=== PATIENT | female | born 1965 | race Caucasian/White ===

== ENCOUNTER 2017-06-27 10:05 | Inpatient (IN) | payer BC ==
[2017-06-27] MEDS ORDERED: Ondansetron HCl/PF 4 MG/2 ML Vial ONE ×2 (10:40→12:08)
[2017-06-27 10:54] LABS: #Eosinphils 0.1 thou/uL (0.0-0.7); #Lymphocytes 2.1 thou/uL (1.20-3.40); #Monocytes 1.9 thou/uL (0.11-0.59); #Neutrophils 13.5 thou/uL (1.40-6.50); %Basophils 0.3 % (0.0-1.0); %Eosinophils 0.7 % (0.0-10.0); %Lymphocytes 11.7 % (21.0-51.0); %Monocytes 10.8 % (0.0-10.0); %Neutrophils 76.5 % (42.0-75.0); Hemoglobin 18.3 g/dL (12.0-16.0); Mean Corpuscular HGB CONC 33.6 g/dL (32.0-36.0); Mean Corpuscular Hemoglobin 30.7 pg (27.0-31.0); Mean Corpuscular Volume 91.4 fl (81.0-99.0); Mean Platelet Volume 7.7 fL (7.4-10.4); Platelet Count 311 thou/uL (130-400); RBC Distribution Width 11.9 % (11.5-14.5); Red Blood Cell (RBC) Count 5.96 mill/uL (4.20-5.40); White Blood Cell (WBC) Count 17.6 thou/uL (4.8-10.8)
[2017-06-27 11:18] LABS: CKMB 5.7 ng/mL (0-6.6)
[2017-06-27 11:25] LABS: Troponin I 0.105 ng/mL (< 0.028)
[2017-06-27 11:30] LABS: AST (SGOT) 48 U/L (5-34); Albumin 4.2 g/dL (3.5-5.0); Bilirubin, Total 0.5 mg/dL (0.2-1.2); Calc. Creatinine Clearance 0 mL/min (70-130); Calcium 9.7 mg/dL (7.8-10.44); Carbon Dioxide 10 mmol/L (22-29); Chloride 103 mmol/L (98-107); Estimated GFR-MDRD 29; Globulin 4.2 g/dL (2.4-3.5); Potassium 3.4 mmol/L (3.5-5.1); Protein, Total 8.4 g/dL (6.0-8.3); Sodium 133 mmol/L (136-145)
[2017-06-27 11:45] LABS: Glucose 114 mg/dL (70-105)
[2017-06-27 11:47] LABS: Alkaline Phosphatase 95 U/L (40-150)
[2017-06-27] MEDS ORDERED: Potassium Chloride 20 MEQ TAB ONE (11:48)
[2017-06-27 11:49] LABS: BUN (Urea Nitrogen) 28 mg/dL (9.8-20.1)
[2017-06-27 11:51] LABS: ALT (SGPT) 43 U/L (8-55); CK (CPK) 226 U/L (29-168)
[2017-06-27 11:53] LABS: Anion Gap 23 mmol/L (10-20)
--- NOTE | 2017-06-27 12:00 | RAD ---
CHEST 1 VIEW: HISTORY: A 52-year-old female with a history of syncopal episode with chest pain and tingling, vomiting, and d iarrhea. COMPARISON: 12/30/16. FINDINGS: Heart size is normal. The lungs are clear. IMPRESSION: No acute intrathoracic disease. POS: [facility]
[2017-06-27] MEDS ORDERED: Guaifenesin DM 100-10/5 ML UDCUP PO PRN (12:17)
[2017-06-27] MEDS ORDERED: Enoxaparin Sodium 40 MG/0.4 ML SYRINGE SC SCH (12:30)
[2017-06-27] MEDS ORDERED: PROVENTIL INHALER 6.7 G (200 INHALATIONS) INH PRN (12:38)
[2017-06-27] MEDS ORDERED: Phenergan/Codeine 10-6.25mg/5ml UDCUP PO PRN (12:38)
[2017-06-27] MEDS ORDERED: hydrALAZINE 20 MG/ML VIAL SLOW IVP PRN (12:43)
[2017-06-27] MEDS ORDERED: methylPREDNISolone 4 mg Tablet PO SCH (12:45)
--- NOTE | 2017-06-27 13:30 | HP ---
CHIEF COMPLAINT: Syncopal episode and chest pain "fell at home." HISTORY OF PRESENT ILLNESS: A 52-year-old female with a known history of hypertension, scleroderma, scleroderma associated renal disease, who presented with a chief complaint of having fallen at home and a syncopal episode while having some chest discomfort. It appears that since last Thursday, which is approximately 5 days ago. The patient has been having symptoms of cough, nausea , retching, intermittent diarrhea, malaise, fatigue, sweats, diaphoresis that have been progressively worse since then. It appears that her family at home has had similar but milder symptoms. Theirs have resolved, but hers have persisted. Over the last few days, the patient has been unable to tolerate much oral intake as every time she tries to eat something, she becomes nauseated. REVIEW OF SYSTEMS: As per HPI. CONSTITUTIONAL: Subjective fevers and chills. No significant weight loss or gain. HEENT: No new headaches, dizziness, or vision changes. CARDIOVASCULAR: No overt chest pain, chest pressure, left-sided arm numbness or tingling, although the patient does endorse having "night sweats or diaphoretic episodes." RESPIRATORY: No overt shortness of breath. Positive for cough grossly nonproductive. GASTROINTESTINAL: Nausea with retching, poor p.o. intake as attempts p.o. intake resulted in nausea after p.o. attempt. Intermittent diarrhea. GENITOURINARY: No dysuria. No changes in urinary frequency, color, or quantity. MUSCULOSKELETAL: Generalized fatigue, malaise, myalgias, without arthralgias. SKIN: No new rashes or lymphadenopathy. Remainder of review of systems otherwise negative. PAST MEDICAL HISTORY: As per above. Includes, 1. Hypertension, scleroderma, Raynaud's disease, history of kidney injury due to scleroderma per the patient. 2. Status post cholecystectomy. 3. Status post hysterectomy. 4. Status post tonsillectomy. HOME MEDICATIONS: As per EMR. The patient denies any recent changes to this regimen in the last 2 weeks. ALLERGIES: No known drug allergies. FAMILY HISTORY: No known family history of scleroderma or renal disease. PHYSICAL EXAMINATION: VITAL SIGNS: Blood pressure 160/101, pulse of 110, respirations 18, satting 100 % on room air, temperature of 99.4. GENERAL: The patient is awake, alert, appropriate, conversant, and provides a history as above. Appears to be a reasonable historian. HEENT: Dry mucous membranes. HEENT: Equal ocular motions are intact. Pupils are equal and reactive. Reasonable dentition. Normocephalic, atraumatic. CARDIOVASCULAR: S1 and S2. Pulses 2+ bilateral upper extremities, no pitting pedal edema. RESPIRATORY: Clear to auscultation throughout. No wheezes, rales or rhonchi. ABDOMEN: Positive bowel sounds, soft, nontender to palpation. MUSCULOSKELETAL: Moving all 4 extremities. LABORATORY DATA AND IMAGING: WBC 17.6, hemoglobin 18.3, hematocrit 58.5, platelets 311. Sodium 133, potassium 3.4, chloride 103, bicarb 10, creatinine 1.81, BUN 28. Lactic acid 6.2, AST 48, ALT 43, alkaline phosphatase 95. Creatinine kinase 226, troponin 0.105. Influenza swab positive for influenza type B. ASSESSMENT AND PLAN: A 52-year-old female, who presents status post a syncopal episode. 1. Influenza type B. The patient likely has been experiencing symptoms consistent with type B influenza. Given the severity of her symptoms including the comorbid sepsis presentation, the patient will be started empirically on Tamiflu. The patient appears to have a significant amount of dehydration alongside leukocytosis, acute kidney injury and non-ST elevated myocardial infarction type 2 presentation. The patient will be initiated on Tamiflu, IV fluid, supportive care otherwise with close monitoring of her hemodynamics. 2. History of hypertension. Continue the patient on her home regimen as her vital signs will tolerate. P.r.n., hydralazine if needed for interval blood pressure control. 3. Elevated troponin, closely monitor. I suspect that this is a type 2 etiology given her influenza. The patient states that she does see an outpatient microarray operations vice president, we will consult. 4. Elevated creatinine in the setting of scleroderma could be prerenal etiology , we will hydrate. Continue close monitoring of intake and output. Repeat BMP in the morning. Suspect prerenal secondary to sepsis from influenza. 5. Dehydration. Please see discussion above. Admit the patient inpatient medical surgical with telemetry. The patient is FULL CODE. This is discussed with the patient and her family at bedside. Greater than 30 minutes critical care time spent coordinating care for admission for this patient. ANA
[2017-06-27 14:42] LABS: Troponin I 0.133 ng/mL (< 0.028)
[2017-06-27] MEDS: methylPREDNISolone 4 mg Tablet PO SCH ×2 (17:35→20:58)
[2017-06-27] MEDS: Sodium Chloride 0.9% 1,000 ML IV SCH ×2 (17:35→20:56)
[2017-06-27 18:25] LABS: Lactic Acid 3.1 mmol/L (0.5-2.2)
--- NOTE | 2017-06-27 18:55 | CON ---
DATE OF CONSULTATION: 06/27/2017 REASON FOR CONSULTATION: Elevated troponin. REFERRING PROVIDER: Ezra Pinedo M.D. HISTORY OF PRESENT ILLNESS: Ms. Bledsoe is a 52-year-old woman with previous history of scleroderma who recently has been seen and evaluated by Dr. Joaquim Sutherland. She recently had a syncopal episode. Her significant other states she had a seizure-like activity. She has been sick and not eating well. S he has been dehydrated. She has had very poor p.o. intake. She has also had coughing in addition to chest pain, it is worse with coughing. PAST MEDICAL HISTORY: Hypertension and Raynaud. PAST SURGICAL HISTORY: Cholecystectomy, hysterectomy, tonsillectomy. ALLERGIES: None. FAMILY HISTORY: Negative for CAD. HOME MEDICATIONS: Methylprednisone, psyllium, promethazine, nifedipine, metoprolol, meloxicam, lisin opril, levofloxacin, and aspirin. REVIEW OF SYSTEMS: Ten-point review of systems is reviewed and as above, otherwise negative. PHYSICAL EXAMINATION: GENERAL: Patient is a pleasant female who is in no acute distress. The patient appears her stated a ge. VITAL SIGNS: Blood pressure 129/86, pulse 86, temperature 99.5. NEUROLOGIC: The patient is alert and oriented times 3 with no focal neurologic deficits. HEENT: Sclerae without icterus. Mouth has moist mucous membranes with normal pallor. NECK: No JVD. Carotid upstroke brisk. No bruits bilaterally. LUNGS: Clear to auscultation with unlabored respirations. BACK: No scoliosis or kyphosis. CARDIAC: Regular rate and rhythm with normal S1 and S2. No S3 or S4 noted. No significant rubs, mu rmurs, thrills, or gallops noted throughout the precordium. PMI is not displaced. There is no kelly ternal heave. ABDOMEN: Soft, nontender, nondistended. No peritoneal signs present. No hepatosplenomegaly. No ab normal striae. EXTREMITIES: 2+ femoral and 2+ dorsalis pedis pulses. No cyanosis, clubbing, or edema. SKIN: No gross abnormalities. LABORATORY DATA: Lactic acid level of 6.2, creatinine 1.81, BUN 28, sodium 134, troponin 0.133, GFR 29, hemoglobin 18.3. IMPRESSION: 1. Syncope. 2. Positive flu. 3. Scleroderma. RECOMMENDATIONS: Ms. Bledsoe states she recently had a stress study performed in the office and was negative for ischemia. Her syncope is likely related to dehydration, recent flu-like illness. We alfredo gruber recommend IV fluids and continue support. Continue monitoring on telemetry monitoring. We will review her echo noted in the office. We will continue follow with you.
[2017-06-27] MEDS: Lisinopril 5 MG TAB PO SCH (20:56)
[2017-06-27] MEDS: Famotidine/PF 20 mg/2ml Vial SLOW IVP SCH (20:56)
[2017-06-27] MEDS: Metoprolol Tartrate 25 MG TAB PO SCH (20:57)
[2017-06-27] MEDS: Acetaminophen 325 MG TAB PO PRN (20:57)
[2017-06-27] MEDS: Oseltamivir 75 MG CAP PO SCH (20:57)
[2017-06-28] MEDS: Sodium Chloride 0.9% 1,000 ML IV SCH ×4 (00:57→23:45)
[2017-06-28 01:24] LABS: Bilirubin Negative (Negative); Blood, Urine Moderate (Negative); Clarity CLEAR (Clear); Glucose, Urine (Dipstick) Negative (Negative); Leukocyte Negative (Negative); Nitrite Negative (Negative); Protein, Urine (Dipstick) 100 mg/dL (Neg-Trace); Specific Gravity, Urine 1.023 (1.002-1.036); Urobilinogen 0.2 mg/dL (0.2-1.0)
[2017-06-28 01:26] LABS: Bacteria/HPF None Seen HPF (None Seen); Hyaline Casts/LPF 0-3 HYALINE CAST LPF (0-3 Hyaline); Pathc Cast-AUWi Flag 0.13 (0-2.49); Squamous Epithelial 0-3 HPF (0-3); WBC/HPF 0-3 HPF (0-3)
[2017-06-28 06:33] LABS: #Lymphocytes 2.1 thou/uL (1.20-3.40); #Monocytes 1.1 thou/uL (0.11-0.59); %Eosinophils 0.2 % (0.0-10.0); %Lymphocytes 22.8 % (21.0-51.0); %Monocytes 11.9 % (0.0-10.0); Hemoglobin 15.5 g/dL (12.0-16.0); Mean Corpuscular HGB CONC 33.3 g/dL (32.0-36.0); Mean Corpuscular Hemoglobin 30.7 pg (27.0-31.0); Mean Corpuscular Volume 92.1 fl (81.0-99.0); Mean Platelet Volume 8.2 fL (7.4-10.4); Platelet Count 247 thou/uL (130-400); RBC Distribution Width 11.9 % (11.5-14.5); Red Blood Cell (RBC) Count 5.05 mill/uL (4.20-5.40); White Blood Cell (WBC) Count 9.2 thou/uL (4.8-10.8)
[2017-06-28 06:49] LABS: Albumin 3.4 g/dL (3.5-5.0); Anion Gap 11 mmol/L (10-20); BUN (Urea Nitrogen) 22 mg/dL (9.8-20.1); BUN/Creatinine Ratio 16.67; Calc. Creatinine Clearance 74 mL/min (70-130); Calcium 8.4 mg/dL (7.8-10.44); Carbon Dioxide 18 mmol/L (22-29); Chloride 110 mmol/L (98-107); Estimated GFR-MDRD 42; Glucose 104 mg/dL (70-105); Phosphorus 2.6 mg/dL (2.3-4.7); Potassium 4.5 mmol/L (3.5-5.1); Sodium 134 mmol/L (136-145)
[2017-06-28] MEDS: Oseltamivir 75 MG CAP PO SCH ×2 (08:23→20:43)
[2017-06-28] MEDS: Aspirin 81 mg Enteric Coated Tablet PO SCH (08:23)
[2017-06-28] MEDS: Metoprolol Tartrate 25 MG TAB PO SCH ×2 (08:23→20:43)
[2017-06-28] MEDS: Lisinopril 5 MG TAB PO SCH ×2 (08:23→20:43)
[2017-06-28] MEDS: methylPREDNISolone 4 mg Tablet PO SCH ×3 (08:24→18:06)
[2017-06-28] MEDS ORDERED: NIFEdipine XL 60 MG TAB PO SCH (09:00)
[2017-06-28] MEDS ORDERED: FLU VACC QS2017-18 36 mo. & older 0.5 ML SYRINGE IM ONE (09:00)
[2017-06-28] MEDS ORDERED: Meloxicam 15 MG TAB PO SCH (09:00)
[2017-06-28] MEDS: Acetaminophen 325 MG TAB PO PRN ×2 (11:44→18:06)
--- NOTE | 2017-06-28 12:53 | CON ---
DATE OF CONSULTATION: 06/28/2017 REASON FOR CONSULTATION: Elevated creatinine. HISTORY OF PRESENT ILLNESS: This is a very pleasant 52-year-old female who presented to the hospital on 06/27 with a creatinine of 1.8. Baseline creatinine was less than 1 and the patient had a syncop al episode. The patient has had diarrhea and vomiting. The patient at this time denies headache, nu mbness, tingling or weakness. Denies any nausea, vomiting or chest pain. REVIEW OF SYSTEMS: Fifteen-point review of systems was performed and was negative except for positiv es noted above. GENERAL: Weakness-. HEAD: Headache-. NECK: No swelling or lumps. NOSE: No epistaxis or discharge. EYES: No diplopia or pain. RESPIRATORY: Dyspnea-. CARDIOVASCULAR: Chest pain-. GASTROINTESTINAL: Nausea-. /CHURCH SECRETARY: Hematuria-. MUSCULOSKELETAL: No joint pain. NEUROPSYCHIATRIC SYSTEMS: No suicidal ideation. No ideation. SKIN: Denies any rash or ulcer. CONSTITUTIONAL: No fever or chills. PAST MEDICAL HISTORY: Significant for hypertension, scleroderma, renal disease, cholecystectomy, hys terectomy and tonsillectomy. HOME MEDICATIONS: List reviewed. HOSPITAL MEDICATIONS: Reviewed. ALLERGIES: Reviewed. FAMILY HISTORY: Negative for ESRD. PHYSICAL EXAMINATION: GENERAL: The patient is awake and alert. VITAL SIGNS: Afebrile, pulse 75, breathing at 16 and blood pressure was 132/81. HEAD/NECK: Normocephalic. Atraumatic. EYES: EOMI. No deformity. EARS: Clear. No ulcers. NOSE: Intact. No lesions. MOUTH: Clear. No discharge. THROAT: Clear. No exudate. LUNGS: Clear. No crackles. CARDIAC: S1, S2. No rub. ABDOMEN: Benign. BS+. GENITALIA/RECTUM: Britt absent. BACK/EXTREMITIES: Edema 0+. Ulcer-. NEUROLOGICAL: Alert and motor intact. SKIN: Rash-. Bruise-. LYMPHATICS: Edema-. Ulcer-. LABORATORY DATA: Showed a hemoglobin of 15.5. Creatinine 1.2. ASSESSMENT AND RECOMMENDATIONS: 1. Acute kidney injury, stable. 2. Hypertension, stable. 3. Anemia, stable. 4. Metabolic acidosis. We will give sodium bicarbonate. No indication for dialysis at this time. Continue gentle hydration.
--- NOTE | 2017-06-28 13:36 | PRG ---
DATE OF SERVICE: 06/28/2017 SUBJECTIVE: Ms. Bledsoe is doing much better today. No recurrent episodes of syncope. She has rece ived IV fluids. Echo is currently pending. PHYSICAL EXAMINATION: VITAL SIGNS: Blood pressure 153/99, pulse 71, temperature 97.4. LUNGS: Clear to auscultation. CARDIAC: Regular rate and rhythm. ABDOMEN: Soft, nontender, nondistended. EXTREMITIES: No edema. IMPRESSION: 1. Syncope. 2. Scleroderma. RECOMMENDATIONS: Ms. Bledsoe's symptoms are likely related to volume contraction. She tested positi ve for the flu. We would continue IV fluids. We will check echocardiogram with Doppler. We will re evaluate in a.m.
--- NOTE | 2017-06-28 15:00 | PDOC.PN ---
- Subjective Encounter Start Date: 06/28/17 Encounter Start Time: 15:00 Subjective: nsg notes rev, nisa ovn, @ bedside pt states she feels much better -: breathing is improved, able to tolerate some oral intake, no further -: diarrhea - Objective Resuscitation Status: Resuscitation Status FULL:Full Resuscitation Vital Signs & Weight: Vital Signs (12 hours) Temp Pulse Resp BP BP BP BP 06/28/17 12:00 97.4 F L 81 18 153/99 H 06/28/17 08:16 99.3 F 89 16 142/87 H 140/80 146/81 H 132/81 06/28/17 08:15 99.3 F 89 16 06/28/17 04:55 06/28/17 04:00 98 F 70 19 124/67 Pulse Ox 06/28/17 12:00 96 06/28/17 08:16 100 06/28/17 08:15 100 06/28/17 04:55 100 06/28/17 04:00 100 Weight Weight 208 lb 4.8 oz I&O: 06/27/17 06/28/17 06/29/17 06:59 06:59 06:59 Intake Total 1828 Output Total 750 Balance 1078 Result Diagrams: 06/28/17 05:44 06/28/17 05:44 Phys Exam - Physical Examination Constitutional: NAD HEENT: PERRLA, moist MMs Respiratory: no wheezing, no rales, no rhonchi, clear to auscultation bilateral Cardiovascular: RRR, no significant murmur, no rub Gastrointestinal: soft, no distention, positive bowel sounds Musculoskeletal: no edema, pulses present Neurological: moves all 4 limbs Psychiatric: normal affect, A&O x 3 Skin: normal turgor, cap refill <2 seconds Dx/Plan (1) Influenza Code(s): J11.1 - FLU DUE TO UNIDENTIFIED INFLUENZA VIRUS W OTH RESP MANIFEST Status: Acute (2) MARCO ANTONIO (acute kidney injury) Code(s): N17.9 - ACUTE KIDNEY FAILURE, UNSPECIFIED Status: Acute (3) Hypertensive urgency Code(s): I16.0 - HYPERTENSIVE URGENCY Status: Acute - Plan cont current plan of care, plan discussed w/ family Influenza type B. * symptomatically improved, in room air, no conversational dyspnea * continue tamiflu * leukocytosis improved dehydration * D/C IVF as oral intake is significantly improved HTN * improved, continue to monitor elevated troponin likely IA type 2 * appreciate cardiology c/s * hemodynamically stable MARCO ANTONIO, likely pre renal * appreciate nephrology c/s diet: cardiac, renal activity: as ryan If continued improvement, potential D/C tomorrow Review of Systems - Medications/Allergies Allergies/Adverse Reactions: Allergies Allergy/AdvReac Type Severity Reaction Status Date / Time No Known Allergies Allergy Verified 12/30/16 16:52 Medications: Current Medications Acetaminophen (Tylenol) 650 mg PO Q4H PRN PRN Reason: Headache/Fever or Pain Last Admin: 06/28/17 11:44 Dose: 650 mg Albuterol Sulfate (Proventil Hfa) 1 puff INH Q4HR PRN PRN Reason: SOB &/or Wheezing Albuterol/Ipratropium (Duoneb) 3 ml NEB [id number] PRN PRN Reason: SOB &/or Wheezing Aspirin (Ecotrin) 81 mg PO DAILY [facility] Last Admin: 06/28/17 08:23 Dose: 81 mg Famotidine (Pepcid) 20 mg SLOW IVP QPM [facility] Last Admin: 06/27/17 20:56 Dose: 20 mg Guaifenesin/Dextromethorphan (Robitussin Dm) 15 ml PO Q4H PRN PRN Reason: Cough Hydralazine HCl (Apresoline) 10 mg SLOW IVP Q4H PRN PRN Reason: Hypertension Sodium Chloride (Normal Saline 0.9%) 1,000 mls @ 150 mls/hr IV .Q6H40M [facility] Last Admin: 06/28/17 08:24 Dose: 1,000 mls Lisinopril (Zestril) 5 mg PO BID [facility] Last Admin: 06/28/17 08:23 Dose: 5 mg Meloxicam (Mobic) 15 mg PO DAILY [facility] Last Admin: 06/28/17 08:23 Dose: 15 mg Methylprednisolone (Medrol) 4 mg PO 0800,1300,1800 [facility] Stop: 06/28/17 18:01 Last Admin: 06/28/17 13:11 Dose: 4 mg Methylprednisolone (Medrol) 8 mg PO 2100 [facility] Stop: 06/28/17 21:01 Methylprednisolone (Medrol) 4 mg PO 0800,1200,1700,2100 [facility] Stop: 06/29/17 21:01 Methylprednisolone (Medrol) 4 mg PO 0800,1200,1700 [facility] Stop: 06/30/17 17:01 Methylprednisolone (Medrol) 4 mg PO 0800,1700 [facility] Stop: 07/01/17 17:01 Methylprednisolone (Medrol) 4 mg PO 0800 [facility] Stop: 07/02/17 08:01 Metoprolol Tartrate (Lopressor) 25 mg PO BID [facility] Last Admin: 06/28/17 08:23 Dose: 25 mg Nifedipine (Procardia Xl) 60 mg PO DAILY [facility] Last Admin: 06/28/17 08:22 Dose: 60 mg Ondansetron HCl (Zofran) 4 mg IVP Q6H PRN PRN Reason: Nausea/Vomiting Oseltamivir Phosphate (Tamiflu) 75 mg PO BID [facility] Stop: 07/02/17 09:01 Last Admin: 06/28/17 08:23 Dose: 75 mg Promethazine HCl/Codeine (Phenergan/Codeine Syrup) 5 ml PO Q6HR PRN PRN Reason: Cough
[2017-06-28] MEDS: Famotidine/PF 20 mg/2ml Vial SLOW IVP SCH (20:43)
[2017-06-28] MEDS ORDERED: methylPREDNISolone 4 mg Tablet PO SCH (21:00)
[2017-06-28] MEDS ORDERED: DOPamine 400 MG/D5W 250 ML 250 ML ONE (22:37)
[2017-06-28] MEDS ORDERED: DOPamine 400 MG/D5W 250 ML 250 ML IVPB SCH ×2 (23:00)
[2017-06-28] MEDS ORDERED: Hydrocortisone Sod Succ/PF 100 mg/2 ml Vial IVP SCH (23:00)
[2017-06-28] MEDS: Ondansetron HCl/PF 4 MG/2 ML Vial IVP PRN (23:45)
--- NOTE | 2017-06-29 00:09 | PDOC.EVN ---
Event Note - Event Note Event Note: Code briana called for syncopal episode with being bradycardic (40's) and hypotensive sbp around 70's initially. Is cold and sweaty with acral cyanosis. Very lethargic but responds to verbal stimuli. 1 dose hydrocortisone 100mg, normal saline bolus 1 liter. Tx to ccu, dopamine 5mcg, is moving all extremities. 20minutes into code briana, pt's acral cynosis is resolving, sbp is coming upto 110. Will get central line in case she does this again overnight for pressors if needed. Is moved to A, Ct/MRI brain in am when stable May tx out to tele in am if she remains stable hemodynamically.
[2017-06-29] MEDS ORDERED: Promethazine HCl 25 MG/ML VIAL SLOW IVP PRN (01:21)
[2017-06-29] MEDS: Sodium Chloride 0.9% 1,000 ML IV SCH ×3 (05:13→17:25)
[2017-06-29] MEDS ORDERED: methylPREDNISolone 4 mg Tablet PO SCH (08:00)
[2017-06-29] MEDS: Aspirin 81 mg Enteric Coated Tablet PO SCH (08:47)
[2017-06-29] MEDS: Oseltamivir 75 MG CAP PO SCH ×2 (08:57→21:58)
--- NOTE | 2017-06-29 09:59 | PRG ---
Patient Name: ROBINSON CAMACHO Date of service: 06/29/2017 Subjective: Patient was seen and examined at bedside and overnight events noted. Patient denies any shortness of breath or chest pain or palpitation. No history of nausea or vomiting or diarrhea or fever or chills or cramps. Objective: General: This is a well-built 52-year-old female in no apparent distress Vital signs: Temperature 98.1, pulse 106, respiratory rate 18, blood pressure 120/91. HEENT: Atraumatic, normocephalic. Oral mucosa is moist. Neck: Supple. Cardiovascular: S1 S2 heard. Rate and rhythm regular. Respiratory: Clear to auscultation. Gastrointestinal: Abdomen is soft. Musculoskeletal: No tenderness. No edema. Dermatologic: No skin rash. Neurologic: Alert and awake and oriented X3. No focal neurologic deficits. Moving all the extremities. Psychiatric: Mood and affect normal. LABORATORY DATA: Potassium is 4.5, BUN 22, creatinine 1.3. ASSESSMENT AND PLAN: 1. Acute kidney injury on chronic kidney disease stage 3, most likely from volume depletion. Agree with hydration. 2. Hypertension, stable. 3. Anemia. 4. Proteinuria. 5. Acidosis. 6. Mild hyponatremia. Overall, renal function is getting better. We will follow.
--- NOTE | 2017-06-29 10:56 | PRG ---
DATE OF SERVICE: 06/29/2017 SUBJECTIVE: Ms. Bledsoe last evening became hypotensive. She became diaphoretic. Code Steven was ca lled. She was placed on dopamine with improvement. This morning, she is back to her normal state of health. OBJECTIVE: GENERAL: Ms. Bledsoe has had a cardiac catheterization performed in the office in 04/2017 that was n egative for ischemia with a normal LVEF. VITAL SIGNS: Blood pressure 134/100, pulse 107 and respirations 20. LUNGS: Clear to auscultation. HEART: Regular rate and rhythm, tachycardic. ABDOMEN: Soft, nontender and nondistended. EXTREMITIES: No edema. PERTINENT LABORATORY DATA: Hemoglobin 15.5. Creatinine 1.32, dated 06/28/2017. IMPRESSION: 1. Hypotension. 2. Recent flu illness. RECOMMENDATIONS: Current etiology to her recent episode is unknown. She states she received the med ication and shortly thereafter developed symptoms. It is hard to tell whether symptoms were related or not related to the medication. She is currently off of dobutamine. We will hold blood pressure m edicines and restart as needed. We will also check an echo with Doppler. Repeat her CBC and base me t.
[2017-06-29 11:33] LABS: #Basophils 0.1 thou/uL (0.0-0.2); #Lymphocytes 2.4 thou/uL (1.20-3.40); #Monocytes 1.3 thou/uL (0.11-0.59); #Neutrophils 12.7 thou/uL (1.40-6.50); %Basophils 0.4 % (0.0-1.0); %Eosinophils 0.1 % (0.0-10.0); %Lymphocytes 14.4 % (21.0-51.0); %Monocytes 7.6 % (0.0-10.0); %Neutrophils 77.4 % (42.0-75.0); Hemoglobin 16.9 g/dL (12.0-16.0); Mean Corpuscular HGB CONC 32.1 g/dL (32.0-36.0); Mean Corpuscular Hemoglobin 30.1 pg (27.0-31.0); Mean Corpuscular Volume 93.9 fl (81.0-99.0); Platelet Count 248 thou/uL (130-400); RBC Distribution Width 12.2 % (11.5-14.5); Red Blood Cell (RBC) Count 5.62 mill/uL (4.20-5.40); White Blood Cell (WBC) Count 16.4 thou/uL (4.8-10.8)
[2017-06-29] MEDS: Ondansetron HCl/PF 4 MG/2 ML Vial IVP PRN (11:50)
--- NOTE | 2017-06-29 12:21 | CON ---
DATE OF CONSULTATION: 06/29/2017 HISTORY: Casie Bledsoe is a 52-year-old obese female who was admitted to the hospital on 06/27/2017. We have been consulted today on 06/29/2017 regarding her ICU care, hypertension. She apparently had nausea and vomiting secondary to the flu, was dehydrated. She became lethargic, diaphoretic, like she was going to pass out. She wasdiaphoretic . She was bradycardic, hypotensive. She is now on Dopamine. She saw Cardiology who felt her syncope was also volume depleted. The patient does not smoke or drink. This morning she says she is feeling somewhat better. Denied any chest pain. PAST MEDICAL HISTORY: 1. Hypertension. 2. History of Raynaud's phenomenon. 3. History of scleroderma. 4. History of minimal renal impairment. She sees a local tinning equipment tender here. PAST SURGICAL HISTORY: 1. Cholecystectomy. 2. Hysterectomy. 3. Tonsils. MEDICATIONS: Metoprolol 50, lisinopril 10, omeprazole 20. ALLERGIES: None. Please note I have reviewed the patient's previous medical records. There are no family members at this time to discuss her history. works in the [employer]. She worked in the [employer] field at one time. SOCIAL HISTORY: Retired. FAMILY HISTORY: Unremarkable for any related problems. REVIEW OF SYSTEMS: Ten point negative. PHYSICAL EXAMINATION: VITAL SIGNS: Blood pressure 120/56, pulse 102, respirations 18, afebrile. CHEST: Chest revealed decreased breath sounds without any wheezing. CARDIAC: Normal S1 and S2. ABDOMEN: Soft, no masses. LABORATORY: Electrolytes are normal. Sodium 132, BUN 34, creatinine 1.32. Baseline creatinine was 1.59. White count is 9,000. H&H 15 and 46, platelet count 247. Lactic acid 3.1. All x-rays and imaging reports evaluated by me. X-ray shows no acute infiltrates. IMPRESSION: 1. Syncope secondary to volume depletion. No apparent cardiac issues. 2. renal failure. 3. Influenza B. PLAN: She was started on steroids yesterday for presumed relative adrenal insufficiency. I will continue. If cultures are negative, blood pressure is improved, she can be transferred out of the ICU. Aggressive PT, supportive care. This is consultation note in the ICU, 70 minutes of which 50% of the time was spent directly with patient care. MTDD
[2017-06-29 13:11] LABS: Chloride 111 mmol/L (98-107); Potassium 4.1 mmol/L (3.5-5.1); Sodium 137 mmol/L (136-145)
[2017-06-29 13:12] LABS: Calcium 8.3 mg/dL (7.8-10.44); Glucose 140 mg/dL (70-105)
[2017-06-29 13:14] LABS: Anion Gap 16 mmol/L (10-20); Carbon Dioxide 14 mmol/L (22-29)
[2017-06-29 13:15] LABS: Calc. Creatinine Clearance 69 mL/min (70-130); Estimated GFR-MDRD 39
[2017-06-29 13:16] LABS: BUN (Urea Nitrogen) 24 mg/dL (9.8-20.1)
[2017-06-29] MEDS ORDERED: Sodium Bicarb 50 MEQ/50 ML Abboject 8.4% SYRINGE IVP SCH (14:30)
[2017-06-29] MEDS ORDERED: Succinylcholine Chloride 20 MG/ML 10 ml SYRINGE FS ONE (15:10)
[2017-06-29] MEDS ORDERED: Lidocaine 1% PF 5 ML VIAL ONE (15:10)
[2017-06-29] MEDS ORDERED: Propofol 200 MG/20 ML VIAL ONE (15:10)
[2017-06-29] MEDS ORDERED: PHENYLEPHRINE-NS 100 MCG/ML 10 ML SYRINGE ONE (15:10)
[2017-06-29 15:15] LABS: Actual Bicarbonate (HCO3a) 8.1 mEq/L (22-26); Base Excess (BEa) -17.8 mEq/L (0 (+/-) 2.5); CO2 Tension 21.6 mmHg (35.0-45.0); Calcium, Ionized 1.2 mmol/L (1.12-1.30); Hematocrit-ABG 49.9 % (36.0-47.0); Hemoglobin (Hb) 16.3 g/dL (12.0-16.0); O2 Tension (PaO2) 96.5 mmHg (80.0-100.0); pH, Arterial 7.14 (7.35-7.45)
[2017-06-29] MEDS ORDERED: cefTRIAXone\\ROCEPHIN 1 GM in Sodium Chloride 0.9% 100 ML IVPB SCH (15:15)
[2017-06-29 15:16] LABS: Puncture Site RRA
--- NOTE | 2017-06-29 15:49 | RAD ---
AP VIEW OF THE CHEST: INDICATIONS: History of CHF. COMPARISON: 06/27/2017 FINDINGS: There is worsening pulmonary vascular congestion and perihilar edema. There is a small right pleural effusion. No pneumothorax is evident. No acute osseous abnormality is demonstrated. heart size is mildly prominent. IMPRESSION: Congestive heart failure. POS: [facility]
[2017-06-29] MEDS ORDERED: Fentanyl 100 MCG/2 ML VIAL ONE ×2 (16:28)
[2017-06-29] MEDS ORDERED: Midazolam HCl 2 mg/2 ml Vial ONE (16:37)
[2017-06-29] MEDS: cefTRIAXone\\ROCEPHIN 1 GM, Syringe 0.4 ML in Sterile Water 9.6 ML SLOW IVP SCH (16:50)
[2017-06-29] MEDS ORDERED: Lidocaine 1% w/Epinephrine 1:200K 30 ML VIAL ONE (17:07)
[2017-06-29] MEDS ORDERED: Bupivacaine PF 0.5% 30 ML VIAL ONE (17:07)
[2017-06-29] MEDS ORDERED: Propofol 1,000 MG/100 ML VIAL IV ONE (17:50)
[2017-06-29] MEDS ORDERED: fentaNYL Citrate/PF 2,000 MCG in Sodium Chloride 0.9% 60 ML IV SCH (18:01)
[2017-06-29] MEDS ORDERED: Lorazepam 2 MG/ML VIAL SLOW IVP PRN (18:01)
[2017-06-29] MEDS ORDERED: Morphine 2 MG/ML SYRINGE SLOW IVP PRN (18:01)
[2017-06-29] MEDS ORDERED: DISCONTINUE PREVIOUS NARCOTIC PAIN MEDICATIONS AND BENZODIAZEPINES FS SCH (18:01)
[2017-06-29 18:18] LABS: pH, Arterial 7.13 (7.35-7.45)
[2017-06-29 18:19] LABS: Actual Bicarbonate (HCO3a) 13.1 mEq/L (22-26); Base Excess (BEa) -15.5 mEq/L (0 (+/-) 2.5); CO2 Tension 40.6 mmHg (35.0-45.0); Hematocrit-ABG 46.9 % (36.0-47.0); Hemoglobin (Hb) 15.5 g/dL (12.0-16.0); O2 Tension (PaO2) 83.1 mmHg (80.0-100.0)
[2017-06-29 18:20] LABS: Calcium, Ionized 1.2 mmol/L (1.12-1.30); Puncture Site RRA
--- NOTE | 2017-06-29 19:30 | RAD ---
PORTABLE CHEST: History: Central line placement. Post pericardial window placement. Comparison: 06-29-17 at 2:32 p.m. FINDINGS: ET tube has been placed and is well above the sidney. The central line is in adequate position overly ing the right atrium. The lungs are well aerated and appear clear of infiltrate. Heart size upper nor mal and stable. IMPRESSION: No acute interval change noted. POS: [facility]
--- NOTE | 2017-06-29 19:37 | CON ---
DATE OF CONSULTATION: 06/29/2017 HISTORY OF PRESENT ILLNESS: This is a 52-year-old woman who has a long medical history including Ray naud's phenomenon, scleroderma, congestive heart failure, acute influenza, recent syncope and congest amaya heart failure exacerbation. She had a code this morning from a respiratory standpoint. She has been in the intensive care unit on BiPAP. She has had an echocardiogram performed which shows perica rdial effusion with right atrial collapse. She is currently sitting upright in bed, severely short o f breath complaining that she cannot catch her air. I have been asked to see her and perform pericar dial window. PAST MEDICAL HISTORY: As above. PAST SURGICAL HISTORY: 1. Cholecystectomy. 2. Hysterectomy. 3. Tonsillectomy. MEDICATIONS: Noted. ALLERGIES: None. SOCIAL HISTORY: She is retired. She has no tobacco use history. REVIEW OF SYSTEMS: Not performed due to the acuity of the situation. PHYSICAL EXAMINATION: GENERAL: This is a well-developed, well-nourished woman resting upright in bed, severely short of br eath. VITAL SIGNS: Her heart rate is 120, blood pressure is unobtainable currently. Heart rhythm is regul ar. LUNGS: Clear bilaterally with coarse breath sounds. HEART: Rhythm is regular. ABDOMEN: Soft and nontender. ASSESSMENT AND PLAN: I reviewed her echo and chest x-ray. Plan is for subxiphoid pericardial window . We will leave her intubated postoperatively. We will also place a central line for IV access.
--- NOTE | 2017-06-29 21:49 | OP ---
DATE OF PROCEDURE: 06/29/2017 PREOPERATIVE DIAGNOSIS: Acute pericardial tamponade. POSTOPERATIVE DIAGNOSIS: Acute pericardial tamponade. PROCEDURES: 1. Pericardial window. 2. Right subclavian central line placement. SURGEON: Jose Miguel Wayne M.D. ANESTHESIA: General endotracheal. ESTIMATED BLOOD LOSS: Minimal. DRAINS: A 19-Cymro fluted Roberto drain left in the pericardium. DESCRIPTION OF PROCEDURE: The patient was emergently brought from the ICU to the operating room. Th e chest was prepped and draped prior to induction of anesthesia. General anesthesia was induced and the patient was intubated. The patient was then placed flat on the bed. Skin incision was made over the xiphoid. The xiphoid was resected. The pericardium was sharply entered and approximately 200 m L of clear fluid drained. A 19-Cymro drain was placed and secured to the skin with silk suture. Th e wounds were closed in layers after anesthetizing with 0.5% Marcaine and 1% lidocaine with epinephri ne mixed. A right subclavian central line was then placed by modified Seldinger technique. The debra ent tolerated the procedure well, and was transferred back to the Intensive Care Unit in critical con dition.
[2017-06-29] MEDS: Famotidine 20 MG TAB PO SCH (21:57)
--- NOTE | 2017-06-29 23:21 | PDOC.PN ---
- Subjective Encounter Start Date: 06/29/17 Encounter Start Time: 17:00 Subjective: nsg notes rev - pt was transferred to ICU, while undergoing ECHO had -: hypotensive, hypoxic episode requiring intubation - pleural effusion -: went for pericardial window - Objective Resuscitation Status: Resuscitation Status FULL:Full Resuscitation Vital Signs & Weight: Vital Signs (12 hours) Temp Pulse Resp BP Pulse Ox 06/29/17 22:00 24 H 06/29/17 20:00 97.8 F 24 H 06/29/17 19:04 120 H 100 06/29/17 19:02 100 06/29/17 18:00 24 H 06/29/17 17:42 121 H 154/99 H 06/29/17 16:00 98.9 F 06/29/17 14:53 124 H 06/29/17 14:52 126 H 25 H 98 06/29/17 12:00 98.3 F Weight Admit Weight 208 lb Weight 208 lb 4.8 oz Most Recent Monitor Data Heart Rate from ECG 114 NIBP 118/85 NIBP BP-Mean 92 Respiration from ECG 24 SpO2 100 I&O: 06/28/17 06/29/17 06/30/17 06:59 06:59 06:59 Intake Total 1828 3531 2622 Output Total 750 600 820 Balance 1078 2931 1802 Result Diagrams: 06/29/17 11:21 06/29/17 12:41 Additional Labs: Accuchecks 06/28/17 06/28/17 23:29 22:05 POC Glucose 88 121 H Dx/Plan (1) Influenza Code(s): J11.1 - FLU DUE TO UNIDENTIFIED INFLUENZA VIRUS W OTH RESP MANIFEST Status: Acute (2) MARCO ANTONIO (acute kidney injury) Code(s): N17.9 - ACUTE KIDNEY FAILURE, UNSPECIFIED Status: Acute (3) Hypertensive urgency Code(s): I16.0 - HYPERTENSIVE URGENCY Status: Acute - Plan Influenza type B. * symptomatically improved, in room air, no conversational dyspnea * continue tamiflu * leukocytosis improved dehydration * D/C IVF as oral intake is significantly improved HTN * improved, continue to monitor elevated troponin likely [place] type 2 * appreciate cardiology c/s * hemodynamically stable MARCO ANTONIO, likely pre renal * appreciate nephrology c/s * continue to monitor I/O pericardial effusion * pericardial window * supportive management of respiratory status, cardiac status diet: cardiac, renal activity: as ryan Review of Systems - Medications/Allergies Allergies/Adverse Reactions: Allergies Allergy/AdvReac Type Severity Reaction Status Date / Time No Known Allergies Allergy Verified 12/30/16 16:52 Medications: Current Medications Acetaminophen (Tylenol) 650 mg PO Q4H PRN PRN Reason: Headache/Fever or Pain Last Admin: 06/28/17 18:06 Dose: 650 mg Albuterol Sulfate (Proventil Hfa) 1 puff INH Q4HR PRN PRN Reason: SOB &/or Wheezing Albuterol/Ipratropium (Duoneb) 3 ml NEB [id number] ALMITA Last Admin: 06/29/17 19:02 Dose: 3 ml Aspirin (Ecotrin) 81 mg PO DAILY ALMITA Last Admin: 06/29/17 08:47 Dose: 81 mg Famotidine (Pepcid) 20 mg PO QPM ALMITA Last Admin: 06/29/17 21:57 Dose: 20 mg Guaifenesin/Dextromethorphan (Robitussin Dm) 15 ml PO Q4H PRN PRN Reason: Cough Hydralazine HCl (Apresoline) 10 mg SLOW IVP Q4H PRN PRN Reason: Hypertension Sodium Chloride (Normal Saline 0.9%) 1,000 mls @ 150 mls/hr IV .Q6H40M ALMITA Last Admin: 06/30/17 03:47 Dose: 1,000 mls Dopamine HCl/Dextrose (Dopamine/D5w) 250 mls @ 0 mls/hr IVPB INF ALMITA; As Directed PRN Reason: Protocol Levofloxacin 750 mg/ Device 150 mls @ 100 mls/hr IVPB 1500 ALMITA Last Admin: 06/29/17 15:41 Dose: 150 mls Ceftriaxone Sodium 1 gm/ (Syringe 0.4 ml/ Sterile Water) 10 mls @ 120 mls/hr SLOW IVP 1600 ALMITA Last Admin: 06/29/17 16:50 Dose: 10 mls Fentanyl Citrate 2,000 mcg/ (Sodium Chloride) 100 mls @ 0 mls/hr IV INF ALMITA; Per Protocol PRN Reason: Protocol Stop: 07/29/17 18:01 Fentanyl Citrate (Fentanyl Bolus) 250 mls @ 0 mls/hr IVPB PRN PRN; As Directed PRN Reason: Breakthrough pain Stop: 07/29/17 18:01 Lorazepam (Ativan) 2 mg SLOW IVP Q2H PRN PRN Reason: Anxiety to achieve Rader 2-3 Stop: 07/29/17 18:01 Methylprednisolone Sodium Succinate (Solu-Medrol) 40 mg IVP Q6HR ALMITA Last Admin: 06/30/17 00:07 Dose: 40 mg Morphine Sulfate (Morphine) 2 mg SLOW IVP Q2H PRN PRN Reason: Breakthrough pain Stop: 07/29/17 18:01 Ondansetron HCl (Zofran) 4 mg IVP Q6H PRN PRN Reason: Nausea/Vomiting Last Admin: 06/29/17 11:50 Dose: 4 mg Oseltamivir Phosphate (Tamiflu) 75 mg PO BID ALMITA Stop: 07/02/17 09:01 Last Admin: 06/29/17 21:58 Dose: 75 mg Propofol (Diprivan) 1,000 mg IV INF PRN; Protocol PRN Reason: TO ACHIEVE RADER SCORE 2-3 Stop: 07/29/17 18:01 Last Admin: 06/30/17 03:46 Dose: 1,000 mg Sodium Chloride (Flush - Normal Saline) 10 ml IVF PRN PRN PRN Reason: Saline Flush
[2017-06-30] MEDS: Propofol 1,000 MG/100 ML VIAL IV PRN ×3 (00:09→03:46)
[2017-06-30] MEDS: Sodium Chloride 0.9% 1,000 ML IV SCH ×4 (03:47→20:20)
[2017-06-30 05:45] LABS: Anion Gap 21 mmol/L (10-20); BUN (Urea Nitrogen) 28 mg/dL (9.8-20.1); Calc. Creatinine Clearance 65 mL/min (70-130); Calcium 8.2 mg/dL (7.8-10.44); Chloride 113 mmol/L (98-107); Estimated GFR-MDRD 36; Glucose 132 mg/dL (70-105); Potassium 4.1 mmol/L (3.5-5.1); Sodium 139 mmol/L (136-145)
[2017-06-30 05:51] LABS: Carbon Dioxide 9 mmol/L (22-29)
--- NOTE | 2017-06-30 06:38 | EKG ---
Test Reason : CP Blood Pressure : / mmHG Vent. Rate : 054 BPM Atrial Rate : 054 BPM P-R Int : 136 ms QRS Dur : 080 ms QT Int : 486 ms P-R-T Axes : 034 061 056 degrees QTc Int : 460 ms Sinus bradycardia Nonspecific ST and T wave abnormality Anterolateral leads When compared with ECG of 30-DEC-2016 12:58, Non-specific change in ST segment in Inferior leads ST elevation now present in Anterolateral leads T wave inversion no longer evident in Lateral leads QT has shortened Confirmed by DAMION MOISE ([id number]) on 06/30/2017 6:37:41 AM Referred By: DR MUÑOZ Confirmed By:DAMION MOISE
[2017-06-30] MEDS: Oseltamivir 75 MG CAP PO SCH ×3 (06:54→20:24)
[2017-06-30] MEDS: Famotidine 20 MG TAB PO SCH ×2 (06:55→20:26)
[2017-06-30 07:14] LABS: Actual Bicarbonate (HCO3a) 14.5 mEq/L (22-26); Base Excess (BEa) -9.4 mEq/L (0 (+/-) 2.5); Hematocrit-ABG 43.7 % (36.0-47.0); Hemoglobin (Hb) 14.2 g/dL (12.0-16.0); O2 Tension (PaO2) 140.3 mmHg (80.0-100.0); Puncture Site LRA; pH, Arterial 7.35 (7.35-7.45)
[2017-06-30] MEDS ORDERED: Sodium Bicarb 50 MEQ/50 ML Abboject 8.4% SYRINGE IVP SCH (07:45)
--- NOTE | 2017-06-30 07:55 | RAD ---
CHEST 1 VIEW: Date: 06/30/17 HISTORY: Dyspnea. Follow-up. COMPARISON: 06/29/17. FINDINGS: Cardiac silhouette is magnified and enlarged. Pulmonary vasculature has increased with increasing pat sarabjit bibasilar infiltrates. Mediastinum is midline. Lines and tubes are unchanged in position. recreational assistant leads overlie the chest. IMPRESSION: Increasing pulmonary vascular congestion. POS: [facility]
[2017-06-30] MEDS ORDERED: methylPREDNISolone 4 mg Tablet PO SCH (08:00)
--- NOTE | 2017-06-30 08:03 | PRG ---
DATE OF SERVICE: 06/30/2017 She is unresponsive on the vent. She underwent pericardial window, 200 mL of fluid was removed. VITAL SIGNS: Respiratory rate is set at 24, temperature 98, blood pressure 190/86. She is making so me urine. I's and O's 4667 in, 6671 out. CHEST: Decreased breath sounds, no wheezing. CARDIAC: Normal S1, S2. No gallops. LABORATORY: PO2 140, pCO2 73, 5, rate of 24, 80%, 450 tidal volume, PEEP of 5. Sodium 137, chloride 113, bicarbonate was 9, BUN was 28, creatinine 1.5. IMPRESSION: 1. Status post pericardial window for pericardial effusion. 2. Reduced ejection fraction. 3. History of scleroderma. 4. Fluid. 5. Possibly right-sided pneumonia. PLAN: Try and wean and extubate today. Continue steroids, broad-spectrum antibiotics, Tamiflu, PT, and supportive care. One-half hour critical care time. I will follow.
[2017-06-30] MEDS: Aspirin 81 mg Enteric Coated Tablet PO SCH (08:30)
[2017-06-30] MEDS ORDERED: Furosemide 20 MG/2 ML VIAL SLOW IVP SCH (09:00)
--- NOTE | 2017-06-30 12:29 | PDOC.PN ---
- Subjective Encounter Start Date: 06/30/17 Encounter Start Time: 12:00 CC; Dyspnea Sub: Pt denies chest pain - Objective Resuscitation Status: Resuscitation Status FULL:Full Resuscitation Vital Signs & Weight: Vital Signs (12 hours) Temp Pulse Resp BP Pulse Ox 06/30/17 12:00 98.6 F 100 06/30/17 11:00 116 H 16 99 06/30/17 08:56 109 H 25 H 99 06/30/17 08:00 17 06/30/17 07:21 98.9 F 111 H 24 H 100 06/30/17 07:00 98.9 F 06/30/17 06:46 108 H 113/82 06/30/17 06:45 107 H 24 H 99 06/30/17 06:00 24 H 06/30/17 04:00 98.6 F 24 H 06/30/17 02:06 111 H 120/92 H 06/30/17 02:00 24 H 06/30/17 01:00 98 F Weight Admit Weight 208 lb Weight 208 lb 4.8 oz Most Recent Monitor Data Heart Rate from ECG 121 NIBP 136/96 NIBP BP-Mean 106 Respiration from ECG 18 SpO2 100 I&O: 06/29/17 06/30/17 07/01/17 06:59 06:59 06:59 Intake Total 3531 4667 0 Output Total 600 1155 920 Balance 2931 3512 -920 Result Diagrams: 06/29/17 11:21 06/30/17 12:37 Phys Exam - Physical Examination Constitutional: NAD HEENT: moist MMs Neck: no JVD Respiratory: no rales, no rhonchi diminished at bases, no accessory muscle usage seen s1 s2 present, tachy, no rubs, no gallop Gastrointestinal: soft, non-tender, no distention Neurological: non-focal Psychiatric: normal affect Skin: no rash Dx/Plan - Plan (1) Influenza Code(s): J11.1 - FLU DUE TO UNIDENTIFIED INFLUENZA VIRUS W OTH RESP MANIFEST Status: Acute (2) MARCO ANTONIO (acute kidney injury) Code(s): N17.9 - ACUTE KIDNEY FAILURE, UNSPECIFIED Status: Acute (3) Hypertensive urgency Code(s): I16.0 - HYPERTENSIVE URGENCY Status: Acute 4. Pericardial effusion 5. Metabolic acidosis - Plan Influenza type B. * symptomatically improved, in room air, no conversational dyspnea * continue tamiflu * leukocytosis improved dehydration * D/C IVF as oral intake is significantly improved HTN * improved, continue to monitor elevated troponin likely [place] type 2 * appreciate cardiology c/s * hemodynamically stable MARCO ANTONIO, likely pre renal * appreciate nephrology c/s * continue to monitor I/O pericardial effusion * s/p pericardial window * managemnet per CTVS * Metabolic acidosis: Monitor bicarb level * d/w nephrology recommended bicarb drip. Ore\dered bicarb drip but cancelled by ICU attending. Will defer critical care and acidosis management to ICU attending and nephrology
[2017-06-30] MEDS: Ondansetron HCl/PF 4 MG/2 ML Vial IVP PRN ×2 (12:43→19:51)
[2017-06-30 13:05] LABS: Anion Gap 22 mmol/L (10-20); BUN (Urea Nitrogen) 30 mg/dL (9.8-20.1); Calc. Creatinine Clearance 63 mL/min (70-130); Calcium 8.5 mg/dL (7.8-10.44); Carbon Dioxide 11 mmol/L (22-29); Chloride 111 mmol/L (98-107); Estimated GFR-MDRD 35; Glucose 129 mg/dL (70-105); Potassium 3.6 mmol/L (3.5-5.1); Sodium 140 mmol/L (136-145)
[2017-06-30] MEDS: cefTRIAXone\\ROCEPHIN 1 GM, Syringe 0.4 ML in Sterile Water 9.6 ML SLOW IVP SCH (15:34)
--- NOTE | 2017-06-30 17:40 | CON ---
DATE OF CONSULTATION: 06/29/2017 Ms. Bledsoe today required more oxygen support. She also became hypotensive tachycardic. Stat echo was done and revealed moderate pericardial effusion which is a new finding, greater LVEF also was dim inished. Therefore, I asked Dr. Jose Miguel Wayne to intervene and proceed with pericardial window. I did spend 35 minutes of critical care time.
--- NOTE | 2017-06-30 17:56 | PRG ---
DATE OF SERVICE: 06/30/2017 SUBJECTIVE: Ms. Bledsoe today appears better. She is intubated after recent pericardial window. He r blood pressure has increased and her heart rate has decreased. OBJECTIVE: VITAL SIGNS: Currently, blood pressure 122/86, pulse 122, respirations 20. LUNGS: Clear to auscultation. CARDIAC: Regular rate and rhythm. ABDOMEN: Soft, nontender and nondistended. EXTREMITIES: No edema. She is currently intubated, but answering questions appropriately. PERTINENT LABORATORY DATA: White blood cell count 16,000, hemoglobin 16.9, CO2 of 11, creatinine 1.5 7. IMPRESSION: 1. Pericardial tamponade. 2. Acute systolic heart failure. 3. Scleroderma. 4. Respiratory failure. RECOMMENDATIONS: After reviewing her echo, I am unsure whether she has a true thrombus noted at the apex. When compared to previous echoes, there appears to be a new finding. At this point, we will t reat with Lovenox. I discussed this with Dr. Jose Miguel Wayne. There are no contraindications. I will also add low dose Coreg. She has been on beta dolores therapy previously.
--- NOTE | 2017-06-30 19:18 | PRG ---
DATE OF SERVICE: 06/30/2017 SUBJECTIVE: The patient was seen and examined in the ICU, remains intubated, plan is to extubate tostefani wells. Family is at bedside and blood pressure is controlled. Urine output is low. OBJECTIVE: GENERAL: This is a well-built female, in no apparent distress, intubated now and plan to extubate. VITAL SIGNS: Temperature 98.6, pulse 125, respiratory rate 25, blood pressure 155/103. HEENT: Intubated. CARDIOVASCULAR: S1 and S2 . RESPIRATORY: Clear. GASTROINTESTINAL: Abdomen is soft. MUSCULOSKELETAL: No tenderness. DERMATOLOGIC: No skin rash. NEUROLOGIC: Awake, but intubated. LABORATORY DATA: Potassium is 3.6; BUN is 30; creatinine is 1.57; bicarbonate is 11, was 9 this morn ing. ASSESSMENT AND PLAN: 1. Acute kidney injury on chronic kidney disease. Renal function is stable, close to her baseline. 2. Acidosis, pH of 7.35, bicarbonate was 9. Okay with bicarbonate drip if tolerated. We will defer to Pulmonary Critical Care. 3. Anemia. 4. Proteinuria. 5. Acidosis. 6. Mild hyponatremia. 7. Renal function is stable. Monitor renal function. Overnight event noted. Prognosis is guarded. Avoid nephrotoxins.
[2017-06-30] MEDS: Enoxaparin Sodium 100 MG/ML SYRINGE SC SCH (20:20)
[2017-06-30] MEDS ORDERED: Carvedilol 3.125 MG TAB PO SCH (21:00)
[2017-07-01 05:03] LABS: Anion Gap 15 mmol/L (10-20); BUN (Urea Nitrogen) 34 mg/dL (9.8-20.1); Calc. Creatinine Clearance 70 mL/min (70-130); Calcium 8.6 mg/dL (7.8-10.44); Carbon Dioxide 18 mmol/L (22-29); Chloride 110 mmol/L (98-107); Estimated GFR-MDRD 36; Glucose 145 mg/dL (70-105); Potassium 3.7 mmol/L (3.5-5.1); Sodium 139 mmol/L (136-145)
[2017-07-01] MEDS ORDERED: methylPREDNISolone 4 mg Tablet PO SCH (08:00)
[2017-07-01] MEDS ORDERED: DC Sedation Protocol FS ONE (08:25)
--- NOTE | 2017-07-01 08:36 | RAD ---
CHEST ONE VIEW: History: Ventilated patient. Comparison: Prior day. FINDINGS: Patient has been extubated. Small effusions. Mild atelectasis of the lung bases. Central venous fouzia ter is in place with tip in the right atrium. IMPRESSION: 1. Interval extubation without complication. 2. Small effusions. 3. Mild bibasilar atelectasis. POS: OFF
[2017-07-01] MEDS: Aspirin 81 mg Enteric Coated Tablet PO SCH (08:49)
[2017-07-01] MEDS: Enoxaparin Sodium 100 MG/ML SYRINGE SC SCH ×2 (08:49→21:19)
[2017-07-01] MEDS: Oseltamivir 75 MG CAP PO SCH ×2 (08:49→21:20)
[2017-07-01] MEDS: Carvedilol 6.25 MG TAB PO SCH ×2 (08:50→21:19)
[2017-07-01] MEDS: Cefdinir 300 MG CAP PO SCH ×2 (08:54→21:46)
[2017-07-01] MEDS ORDERED: Sodium Bicarbonate 150 MEQ in Dextrose 5% in Water 1,000 ML IV SCH ×2 (09:00)
--- NOTE | 2017-07-01 09:04 | PRG ---
DATE OF SERVICE: 07/01/2017 SUBJECTIVE: Ms. Bledsoe is doing well. She is extubated yesterday. Her main complaint is just anxi ety. She still remains tachycardic. She remains on Tamiflu. Coreg was also started yesterday at 3. 125 one p.o. b.i.d. She has been on beta dolores therapy in the past. She is off all pressor agents . PHYSICAL EXAMINATION: VITAL SIGNS: Blood pressure 132/97, pulse 122, respirations 25. LUNGS: Clear to auscultation. HEART: Tachycardic. ABDOMEN: Soft, nontender, nondistended. EXTREMITIES: No edema. PERTINENT LABORATORY DATA: Hemoglobin 16.9. Recent CBC not performed. Creatinine 1.5, which is liane n from 1.7, CO2 has also improved from 9 to 18. IMPRESSION: 1. Pericardial tamponade. 2. Scleroderma. 3. Cardiomyopathy. 4. ? apical thrombus. RECOMMENDATIONS: My initial thought was to proceed with JOSE ARMANDO while patient was intubated. Patient is now extubated. At this point, we will continue Lovenox until she is more stable for JOSE ARMANDO. May also consider repeating her echo, which was of poor quality given the situation 2 days ago. I have increa sed her Coreg to 6.25 one p.o. b.i.d. Effusion likely related to scleroderma. She also has LVH. I did discuss this with her .
--- NOTE | 2017-07-01 11:20 | PRG ---
Patient Name: ROBINSON CAMACHO Date of service: 07/01/2017 Subjective: Patient was seen and examined at bedside and overnight events noted. Patient denies any shortness of breath or chest pain or palpitation. No history of nausea or vomiting or diarrhea or fever or chills or cramps. Objective: General: This is a well-built female in no apparent distress. Vital signs: Temperature 97.6, pulse 110, respiratory rate 18, blood pressure 110/58. HEENT: Atraumatic, normocephalic. Oral mucosa is moist. Neck: Supple. Cardiovascular: S1 S2 heard. Rate and rhythm regular. Respiratory: Clear to auscultation. Gastrointestinal: Abdomen is soft. Musculoskeletal: No tenderness. No edema. Dermatologic: No skin rash. Neurologic: Alert and awake and oriented X3. No focal neurologic deficits. Moving all the extremit ies. Psychiatric: Mood and affect normal. LABORATORY DATA: Potassium 3.7, BUN 34, creatinine 1.5. ASSESSMENT AND PLAN: 1. Acute kidney injury on chronic kidney disease. Renal function is stable. 2. Metabolic acidosis, on bicarbonate drip, better. 3. Anemia. 4. Proteinuria. 5. Mild hyponatremia. 6. Scleroderma. Renal function is stable. We will follow.
--- NOTE | 2017-07-01 11:32 | PDOC.PN ---
- Subjective Encounter Start Date: 07/01/17 Encounter Start Time: 11:00 Subjective: Patient unable to sleep due to jitteriness from steroids. Breathing was -: better after pericardial window. Had some bronchospasm this AM but better -: after some nebs. Patient refusing oral steroids or Tamiflu. - Objective Resuscitation Status: Resuscitation Status FULL:Full Resuscitation MAR Reviewed: Yes Vital Signs & Weight: Vital Signs (12 hours) Temp Pulse Resp BP Pulse Ox 07/01/17 10:12 108 H 30 H 07/01/17 08:50 132/97 H 07/01/17 07:23 97.6 F 122 H 25 H 100 07/01/17 07:02 99 07/01/17 07:00 124 H 29 H 99 07/01/17 04:00 97.9 F 07/01/17 00:00 97.9 F Weight Admit Weight 208 lb Weight 222 lb 7.143 oz Most Recent Monitor Data Heart Rate from ECG 113 NIBP 110/58 NIBP BP-Mean 59 Respiration from ECG 28 SpO2 100 I&O: 06/30/17 07/01/17 07/02/17 06:59 06:59 06:59 Intake Total 4667 1650 Output Total 1155 2120 190 Balance 3512 -470 -190 Result Diagrams: 06/29/17 11:21 07/01/17 04:30 Phys Exam - Physical Examination Constitutional: NAD HEENT: moist MMs Respiratory: no rales, no rhonchi decent air movement bilaterally Cardiovascular: RRR, no significant murmur Gastrointestinal: soft, positive bowel sounds Neurological: non-focal Psychiatric: A&O x 3 Deviation from normal: anxious Dx/Plan (1) Influenza Code(s): J11.1 - FLU DUE TO UNIDENTIFIED INFLUENZA VIRUS W OTH RESP MANIFEST Status: Acute (2) Pericardial effusion with cardiac tamponade Code(s): I31.3 - PERICARDIAL EFFUSION (NONINFLAMMATORY); I31.4 - CARDIAC TAMPONADE Status: Acute Comment: s/p pericardial window (3) Scleroderma Code(s): M34.9 - SYSTEMIC SCLEROSIS, UNSPECIFIED Status: Chronic (4) Congestive heart failure (CHF) Code(s): I50.9 - HEART FAILURE, UNSPECIFIED Status: Acute Qualifiers: Congestive heart failure type: combined Congestive heart failure chronicity : acute Qualified Code(s): I50.41 - Acute combined systolic (congestive) and diastolic (congestive) heart failure Comment: EF 35-40% (5) MARCO ANTONIO (acute kidney injury) Code(s): N17.9 - ACUTE KIDNEY FAILURE, UNSPECIFIED Status: Acute Comment: stable - Plan cont current plan of care, continue antibiotics, PT/OT, DVT proph w/SCDs on Cefdinir * . - Discharge Day Encounter end time: 11:30
[2017-07-01] MEDS: Ondansetron HCl/PF 4 MG/2 ML Vial IVP PRN (15:06)
[2017-07-01] MEDS: Mometasone/Formoterol 120 PUFF INHALER INH SCH (18:09)
[2017-07-01] MEDS: Famotidine 20 MG TAB PO SCH (21:18)
[2017-07-02 04:31] LABS: Anion Gap 17 mmol/L (10-20); BUN (Urea Nitrogen) 46 mg/dL (9.8-20.1); Calc. Creatinine Clearance 64 mL/min (70-130); Calcium 8.4 mg/dL (7.8-10.44); Carbon Dioxide 17 mmol/L (22-29); Chloride 108 mmol/L (98-107); Estimated GFR-MDRD 33; Glucose 104 mg/dL (70-105); Potassium 3.7 mmol/L (3.5-5.1); Sodium 138 mmol/L (136-145)
[2017-07-02] MEDS: Sodium Chloride 0.9% 1,000 ML IV SCH ×2 (05:10→22:34)
[2017-07-02] MEDS: Mometasone/Formoterol 120 PUFF INHALER INH SCH ×2 (07:03→19:15)
[2017-07-02] MEDS ORDERED: Carvedilol 6.25 MG TAB PO SCH (07:19)
[2017-07-02] MEDS ORDERED: methylPREDNISolone 4 mg Tablet PO SCH (08:00)
--- NOTE | 2017-07-02 08:34 | PRG ---
Ms. Bledsoe is much better. Her breathing has improved. Her heart rate has also decreased. PHYSICAL EXAMINATION: VITAL SIGNS: Blood pressure 128/94, pulse 109, temperature 97.2. LUNGS: Clear to auscultation with mild crackles at bases. CARDIAC: Regular rate and rhythm, tachycardic. ABDOMEN: Soft, nontender, nondistended. EXTREMITIES: No edema. IMPRESSION: 1. Pericardial effusion with tamponade. 2. Respiratory failure, now resolved. 3. Tachycardia. 4. Cardiomyopathy. RECOMMENDATIONS: Again, Ms. Bledsoe's LVEF is markedly diminished just over the last one month. She had a cardiac stress study with a normal LVEF in April. I am unsure whether her current cardiomy opathy is related to her pericardial effusion. She did state she had a URI noted in the last 6 weeks . Would recommend repeating her echo tomorrow to assess her LV function. Will also increase her Cor eg for better rate control. Okay from my standpoint to transfer to tele.
--- NOTE | 2017-07-02 08:42 | PRG ---
DATE OF SERVICE: 07/02/2017 She is awake, alert, responsive, in no distress, no shortness of breath. PHYSICAL EXAMINATION: VITAL SIGNS: Blood pressure is 128/94, sat 100% on room air, temperature is 97, pulse 110. CHEST: Chest reveals decreased breath sounds, no wheezing. CARDIAC: Normal S1 and S2. ABDOMEN: Soft, no masses. Creatinine 1.65. IMPRESSION: 1. Renal failure. 2. Respiratory failure. 3. Scleroderma. 4. Pericardial effusion. 5. Metabolic acidosis from hypoperfusion, pretty much resolved. PLAN: She can be transferred out of the ICU to a monitored bed. Continue antibiotic, Lovenox as per Cardiology.
--- NOTE | 2017-07-02 08:52 | RAD ---
PORTABLE CHEST: HISTORY: Respiratory distress. COMPARISON: Prior day's exam. FINDINGS: Heart size is enlarged. Right-sided central line is unchanged in position. Some minimal subsegmenta l atelectatic changes are seen in the bases. IMPRESSION: Stable chest. POS: [facility]
[2017-07-02] MEDS: Enoxaparin Sodium 100 MG/ML SYRINGE SC SCH ×2 (08:56→20:32)
[2017-07-02] MEDS: Cefdinir 300 MG CAP PO SCH ×2 (08:58→20:31)
[2017-07-02] MEDS: Aspirin 81 mg Enteric Coated Tablet PO SCH (08:59)
[2017-07-02] MEDS: Carvedilol 6.25 MG TAB PO SCH ×2 (09:00→20:31)
[2017-07-02] MEDS: predniSONE 5 MG TAB PO SCH (09:01)
[2017-07-02] MEDS: Oseltamivir 75 MG CAP PO SCH (09:11)
--- NOTE | 2017-07-02 15:20 | PRG ---
DATE OF SERVICE: 07/02/2017 SUBJECTIVE: Patient was seen and examined at bedside and overnight events noted. Patient denies any shortness of breath or chest pain or palpitation. No history of nausea or vomiting or diarrhea or f ever or chills or cramps. OBJECTIVE: GENERAL: This is a well-built male in no apparent distress. VITAL SIGNS: Temperature 98.0, pulse 90, respiratory rate 18, blood pressure 111/79. HEENT: Atraumatic, normocephalic. Oral mucosa is moist. NECK: Supple. CARDIOVASCULAR: S1, S2 heard. Rate and rhythm regular. RESPIRATORY: Clear to auscultation. GASTROINTESTINAL: Abdomen is soft. MUSCULOSKELETAL: No tenderness. No edema. DERMATOLOGIC: No skin rash. NEUROLOGIC: Alert and awake and oriented x3. No focal neurologic deficits. Moving all the extremiti es. PSYCHIATRIC: Mood and affect normal. LABORATORY DATA: Potassium is 3.7, BUN 46, is creatinine 1.0. ASSESSMENT AND PLAN: 1. Acute kidney injury on chronic kidney disease. Renal function is stable, slightly worse. 2. Metabolic acidosis, stable bicarbonate, most likely from poor circulation. 3. Cardiorenal syndrome with pericardial effusion and pericardial window. 4. Anemia. 5. Proteinuria. 6. History of scleroderma. 7. Renal function is stable. I will follow.
[2017-07-02] MEDS: Famotidine 20 MG TAB PO SCH (20:31)
[2017-07-03 05:45] LABS: Anion Gap 14 mmol/L (10-20); BUN (Urea Nitrogen) 48 mg/dL (9.8-20.1); Calc. Creatinine Clearance 68 mL/min (70-130); Calcium 8.1 mg/dL (7.8-10.44); Carbon Dioxide 16 mmol/L (22-29); Chloride 108 mmol/L (98-107); Estimated GFR-MDRD 34; Glucose 90 mg/dL (70-105); Potassium 3.8 mmol/L (3.5-5.1); Sodium 134 mmol/L (136-145)
[2017-07-03] MEDS: Mometasone/Formoterol 120 PUFF INHALER INH SCH ×2 (07:29→19:40)
[2017-07-03 07:33] VITALS: BMI 35.6
--- NOTE | 2017-07-03 08:28 | PDOC.PN ---
- Subjective Encounter Start Date: 07/02/17 Encounter Start Time: 15:15 Patient seen today in ICUm was with her , off of oxygen, No discomfort noted. No chest pain. pt is being treated for influneza B. - Objective Resuscitation Status: Resuscitation Status FULL:Full Resuscitation MAR Reviewed: Yes Vital Signs & Weight: Vital Signs (12 hours) Temp Pulse Resp BP BP Pulse Ox 07/03/17 07:29 88 24 H 07/03/17 07:28 96.3 F L 98 18 133/82 100 07/03/17 07:25 88 24 H 07/03/17 04:00 98.5 F 96 20 130/87 98 07/03/17 01:36 100 07/03/17 00:00 98.2 F 97 17 123/76 100 07/02/17 21:15 97.9 F 101 H 22 H 100 07/02/17 20:31 132/90 Weight Admit Weight 209 lb 0.2 oz Weight 227 lb 9.6 oz Most Recent Monitor Data Heart Rate from ECG 106 NIBP 130/87 NIBP BP-Mean 99 Respiration from ECG 29 SpO2 99 I&O: 07/02/17 07/03/17 07/04/17 06:59 06:59 06:59 Intake Total 1542 2378 Output Total 940 1025 Balance 602 1353 Result Diagrams: 06/29/17 11:21 07/03/17 05:17 Radiology Reviewed by me: Yes Phys Exam - Physical Examination HEENT: PERRLA, moist MMs Neck: no nodes, no JVD Respiratory: no wheezing, no rales Cardiovascular: RRR, no significant murmur Gastrointestinal: soft, non-tender Musculoskeletal: no edema, pulses present Lymphatic: no nodes Psychiatric: normal affect, A&O x 3 Dx/Plan (1) Influenza Code(s): J11.1 - FLU DUE TO UNIDENTIFIED INFLUENZA VIRUS W OTH RESP MANIFEST Status: Acute Comment: Pt continued on Tamiflu and IV antibiotics. Stbale, No fever. (2) Pericardial effusion with cardiac tamponade Code(s): I31.3 - PERICARDIAL EFFUSION (NONINFLAMMATORY); I31.4 - CARDIAC TAMPONADE Status: Acute Comment: s/p pericardial window, stbale now, No SOB. (3) MARCO ANTONIO (acute kidney injury) Code(s): N17.9 - ACUTE KIDNEY FAILURE, UNSPECIFIED Status: Acute Comment: stable and improved, continue hydration. (4) Hypertensive urgency Code(s): I16.0 - HYPERTENSIVE URGENCY Status: Acute Comment: Resolved now, Stbale, BP at Goal (5) Hypokalemia Code(s): E87.6 - HYPOKALEMIA Status: Acute Comment: Mild, KCL 40meq x 1 today, repeat K+ level in am (6) Hyperlipidemia Code(s): E78.5 - HYPERLIPIDEMIA, UNSPECIFIED Status: Chronic - Plan cont current plan of care, plan discussed w/ family, continue antibiotics, PT/OT , respiratory therapy, incentive spirometry, DVT proph w/lovenox * . - Discharge Day Encounter end time: 15:45 Review of Systems - Review of Systems Constitutional: negative: fever, chills, sweats, weakness, malaise, other Eyes: negative: Pain, Vision Change, Conjunctivae Inflammation, Eyelid Inflammation, Redness, Other ENT: negative: Ear Pain, Ear Discharge, Nose Pain, Nose Discharge, Nose Congestion, Mouth Pain, Mouth Swelling, Throat Pain, Throat Swelling, Other Respiratory: negative: Cough, Dry, Shortness of Breath, Hemoptysis, SOB with Excertion, Pleuritic Pain, Sputum, Wheezing Cardiovascular: negative: chest pain, palpitations, orthopnea, paroxysmal nocturnal dyspnea, edema, light headedness, other Gastrointestinal: negative: Nausea, Vomiting, Abdominal Pain, Diarrhea, Constipation, Melena, Hematochezia, Other Genitourinary: negative: Dysuria, Frequency, Incontinence, Hematuria, Retention , Other Musculoskeletal: negative: Neck Pain, Shoulder Pain, Arm Pain, Back Pain, Hand Pain, Leg Pain, Foot Pain, Other - Medications/Allergies Allergies/Adverse Reactions: Allergies Allergy/AdvReac Type Severity Reaction Status Date / Time No Known Allergies Allergy Verified 12/30/16 16:52 Medications: Current Medications Acetaminophen (Tylenol) 650 mg PO Q4H PRN PRN Reason: Headache/Fever or Pain Last Admin: 06/28/17 18:06 Dose: 650 mg Albuterol Sulfate (Proventil Hfa) 1 puff INH Q4HR PRN PRN Reason: SOB &/or Wheezing Albuterol/Ipratropium (Duoneb) 3 ml NEB [id number] [facility] Last Admin: 07/03/17 07:25 Dose: 3 ml Aspirin (Ecotrin) 81 mg PO DAILY [facility] Last Admin: 07/02/17 08:59 Dose: 81 mg Carvedilol (Coreg) 12.5 mg PO TID [facility] Cefdinir (Omnicef) 300 mg PO BID [facility] Stop: 07/06/17 09:01 Last Admin: 07/02/17 20:31 Dose: 300 mg Enoxaparin Sodium (Lovenox) 95 mg SC 0900,2100 [facility] Last Admin: 07/02/17 20:32 Dose: 95 mg Famotidine (Pepcid) 20 mg PO QPM [facility] Last Admin: 07/02/17 20:31 Dose: 20 mg Furosemide (Lasix) 40 mg PO NOW [facility] Stop: 07/03/17 10:00 Guaifenesin/Dextromethorphan (Robitussin Dm) 15 ml PO Q4H PRN PRN Reason: Cough Hydralazine HCl (Apresoline) 10 mg SLOW IVP Q4H PRN PRN Reason: Hypertension Sodium Chloride (Normal Saline 0.9%) 1,000 mls @ 50 mls/hr IV .Q20H [facility] Last Admin: 07/02/17 22:34 Dose: 1,000 mls Lisinopril (Zestril) 5 mg PO DAILY [facility] Mometasone Furoate/Formoterol Fumar (Dulera 200 Mcg/5 Mcg Inhaler) 2 puff INH BID-RT [facility] Last Admin: 07/03/17 07:29 Dose: 2 puff Ondansetron HCl (Zofran) 4 mg IVP Q6H PRN PRN Reason: Nausea/Vomiting Last Admin: 07/01/17 15:06 Dose: 4 mg Prednisone (Prednisone) 10 mg PO QAM-WM [facility] Last Admin: 07/02/17 09:01 Dose: 10 mg Sodium Chloride (Flush - Normal Saline) 10 ml IVF PRN PRN PRN Reason: Saline Flush
--- NOTE | 2017-07-03 08:52 | PRG ---
DATE OF SERVICE: 07/02/2017 SUBJECTIVE: Ms. Bledsoe is doing better. She has been transferred from the ICU to [facility]. She is seen up and eating. She continues to have pericardial drain. She would like to have he r Britt removed. PHYSICAL EXAMINATION: VITAL SIGNS: Blood pressure 130/82, pulse 88, temperature 96.3. LUNGS: Mild crackles bilaterally. CARDIAC: Regular rate and rhythm. ABDOMEN: Soft, nontender, and nondistended. EXTREMITIES: No edema. PERTINENT LABORATORY DATA: Hemoglobin 16.9, white blood cell count 16.4. IMPRESSION: 1. Acute systolic heart failure. 2. Pericardial tamponade status post window. 3. ? apical thrombus. RECOMMENDATIONS: 1. Increase Coreg to t.i.d. dosing. 2. Add lisinopril. 3. Recommend [facility] for further assessment of the potential apical thrombosis. I discussed the procedu re in full detail with Ms. Bledsoe. The risks included, but not limited to the following: Damage to teeth, mouth, back of the throat, damage to esophagus requiring emergent surgery as well as reaction to medication in addition to aspiration. All questions were answered. We will plan on proceeding w [facility] ARMANDO on Thursday.
[2017-07-03] MEDS ORDERED: Furosemide 40 MG TAB PO SCH (09:00)
[2017-07-03] MEDS: Enoxaparin Sodium 100 MG/ML SYRINGE SC SCH ×2 (09:28→20:37)
[2017-07-03] MEDS: Cefdinir 300 MG CAP PO SCH ×2 (09:28→20:38)
[2017-07-03] MEDS: predniSONE 5 MG TAB PO SCH (09:29)
[2017-07-03] MEDS: Lisinopril 5 MG TAB PO SCH (09:29)
[2017-07-03] MEDS: Aspirin 81 mg Enteric Coated Tablet PO SCH (09:29)
[2017-07-03] MEDS: Carvedilol 6.25 MG TAB PO SCH ×3 (09:29→20:38)
--- NOTE | 2017-07-03 09:52 | PRG ---
DATE OF SERVICE: 07/03/2017 SUBJECTIVE: This morning, she is better, less short of breath. OBJECTIVE: VITAL SIGNS: Respiration 24, temperature 96, blood pressure 133/82. CHEST: Reveals decreased breath sounds, no wheezing. CARDIAC: Normal S1, S2. No gallops. ABDOMEN: Soft, no masses. LABORATORY DATA: Creatinine is 1.59. IMPRESSION: Respiratory failure, pericardial tamponade, pneumonia, influenza B. PLAN: The patient is scheduled for [facility] ARM[facility]O on Thursday. Otherwise, continue supportive care and PT. We w ill follow.
--- NOTE | 2017-07-03 11:17 | PRG ---
DATE OF SERVICE: 07/03/2017 SUBJECTIVE: Patient was seen and examined at bedside and overnight events noted. Patient denies any shortness of breath or chest pain or palpitation. No history of nausea or vomitin g or diarrhea or fever or chills or cramps. OBJECTIVE: GENERAL: This is a well-built female, in no apparent distress. VITAL SIGNS: Temperature 96.3, pulse 88, respiratory rate 18, blood pressure 133/82. HEENT: Atraumatic, normocephalic. Oral mucosa is moist NECK: Supple. CARDIOVASCULAR: S1 and S2 heard. Rate and rhythm regular. RESPIRATORY: Clear to auscultation. GASTROINTESTINAL: Abdomen is soft. MUSCULOSKELETAL: No tenderness. No edema. DERMATOLOGIC: No skin rash. NEUROLOGIC: Alert and awake and oriented X3, No focal neurologic deficits. Moving all the extremitie s. PSYCHIATRIC: Mood and affect normal. LABORATORY DATA: Potassium is 3.8, BUN 48, creatinine 1.5. ASSESSMENT AND PLAN: 1. Acute kidney injury on chronic kidney disease stage 3. Renal function is stable. 2. Hypertension with tachycardia. Medication will be adjusted by Cardiology. 3. Metabolic acidosis, stable. 4. Cardiorenal syndrome. 5. Anemia 6. Proteinuria. 7. Scleroderma. Continues to be acidotic. We will follow. Blood pressure and creatinine stable.
--- NOTE | 2017-07-03 12:40 | PDOC.PN ---
- Subjective Encounter Start Date: 07/03/17 Encounter Start Time: 11:00 Patient is seen today, c/o flushing and feeling swollen and was wondering about her steroid making her feel bloated.. - Objective Resuscitation Status: Resuscitation Status FULL:Full Resuscitation MAR Reviewed: Yes Vital Signs & Weight: Vital Signs (12 hours) Temp Pulse Pulse Resp BP BP BP 07/03/17 11:15 88 20 102/57 L 07/03/17 11:12 80 20 07/03/17 09:46 101 H 134/91 H 07/03/17 09:29 88 133/82 07/03/17 08:00 96.3 F L 88 20 07/03/17 07:29 88 24 H 07/03/17 07:28 96.3 F L 98 18 133/82 07/03/17 07:25 88 24 H 07/03/17 04:00 98.5 F 96 20 130/87 07/03/17 01:36 Pulse Ox 07/03/17 11:15 100 07/03/17 11:12 07/03/17 09:46 07/03/17 09:29 07/03/17 08:00 100 07/03/17 07:29 07/03/17 07:28 100 07/03/17 07:25 07/03/17 04:00 98 07/03/17 01:36 100 Weight Admit Weight 209 lb 0.2 oz Weight 227 lb 9.6 oz Most Recent Monitor Data Heart Rate from ECG 106 NIBP 130/87 NIBP BP-Mean 99 Respiration from ECG 29 SpO2 99 I&O: 07/02/17 07/03/17 07/04/17 06:59 06:59 06:59 Intake Total 1542 2378 Output Total 940 1025 Balance 602 1353 Result Diagrams: 06/29/17 11:21 07/03/17 05:17 Radiology Reviewed by me: Yes EKG Reviewed by me: Yes Phys Exam - Physical Examination HEENT: PERRLA, moist MMs Neck: no nodes, no JVD Respiratory: no wheezing, no rales Cardiovascular: RRR, no significant murmur Gastrointestinal: soft, non-tender Musculoskeletal: pulses present, edema present Neurological: non-focal, normal sensation Lymphatic: no nodes Psychiatric: normal affect, A&O x 3 Skin: no rash, normal turgor Dx/Plan (1) Influenza Code(s): J11.1 - FLU DUE TO UNIDENTIFIED INFLUENZA VIRUS W OTH RESP MANIFEST Status: Acute Comment: Pt continued on Tamiflu and IV antibiotics. Pt on Steroids, Will taper down to lowest dose 5mg po daily, Stbale, No fever. (2) Pericardial effusion with cardiac tamponade Code(s): I31.3 - PERICARDIAL EFFUSION (NONINFLAMMATORY); I31.4 - CARDIAC TAMPONADE Status: Acute Comment: s/p pericardial window, stbale now, No SOB. Low EF, plan to Repeat Echo today. (3) MARCO ANTONIO (acute kidney injury) Code(s): N17.9 - ACUTE KIDNEY FAILURE, UNSPECIFIED Status: Acute Comment: stable and improved, continue hydration. (4) Hypertensive urgency Code(s): I16.0 - HYPERTENSIVE URGENCY Status: Acute Comment: Resolved now, Stbale, BP at Goal (5) Hypokalemia Code(s): E87.6 - HYPOKALEMIA Status: Acute Comment: Mild, KCL 40meq x 1 today, repeat K+ level in am (6) Hyperlipidemia Code(s): E78.5 - HYPERLIPIDEMIA, UNSPECIFIED Status: Chronic (7) Congestive heart failure (CHF) Code(s): I50.9 - HEART FAILURE, UNSPECIFIED Status: Acute Qualifiers: Congestive heart failure type: combined Congestive heart failure chronicity : acute Qualified Code(s): I50.41 - Acute combined systolic (congestive) and diastolic (congestive) heart failure Comment: EF 35-40%, Repeat Echo today, to look for improveemnt. (8) Scleroderma Code(s): M34.9 - SYSTEMIC SCLEROSIS, UNSPECIFIED Status: Chronic Comment: Pt on oral steroids, no evidence of exacerbation. (9) Apical mural thrombus Code(s): I51.3 - INTRACARDIAC THROMBOSIS, NOT ELSEWHERE CLASSIFIED Status: Acute Comment: Plan for JOSE ARMANDO on thursday, pt on anticoagulatn - Plan cont current plan of care, plan discussed w/ family, continue antibiotics, PT/OT , respiratory therapy, incentive spirometry, DVT proph w/SCDs * . - Discharge Day Encounter end time: 11:35
[2017-07-03] MEDS: Sodium Chloride 0.9% 1,000 ML IV SCH (16:04)
[2017-07-03] MEDS: Famotidine 20 MG TAB PO SCH (20:38)
[2017-07-04] MEDS: Acetaminophen 325 MG TAB PO PRN ×2 (00:46→20:29)
[2017-07-04 05:50] LABS: Hemoglobin 11.9 g/dL (12.0-16.0); Platelet Count 332 thou/uL (130-400)
[2017-07-04 06:20] LABS: Anion Gap 14 mmol/L (10-20); BUN (Urea Nitrogen) 44 mg/dL (9.8-20.1); Calc. Creatinine Clearance 72 mL/min (70-130); Calcium 8.1 mg/dL (7.8-10.44); Carbon Dioxide 20 mmol/L (22-29); Chloride 106 mmol/L (98-107); Estimated GFR-MDRD 36; Glucose 93 mg/dL (70-105); Potassium 3.2 mmol/L (3.5-5.1); Sodium 137 mmol/L (136-145)
[2017-07-04] MEDS: Mometasone/Formoterol 120 PUFF INHALER INH SCH ×2 (07:57→20:45)
[2017-07-04] MEDS: predniSONE 5 MG/5 ML UDCUP PO SCH (08:50)
[2017-07-04] MEDS: Enoxaparin Sodium 100 MG/ML SYRINGE SC SCH ×2 (08:50→20:31)
[2017-07-04] MEDS: Cefdinir 300 MG CAP PO SCH ×2 (08:51→20:30)
[2017-07-04] MEDS: Aspirin 81 mg Enteric Coated Tablet PO SCH (08:52)
[2017-07-04] MEDS: Lisinopril 5 MG TAB PO SCH (08:52)
[2017-07-04] MEDS: Carvedilol 6.25 MG TAB PO SCH ×3 (08:52→20:30)
[2017-07-04] MEDS ORDERED: Potassium Chloride 20 MEQ TAB PO SCH ×2 (11:15→12:15)
--- NOTE | 2017-07-04 12:08 | PDOC.CTH ---
Cardiology Progress Note - Subjective No new issues or complaints. - Objective Vital Signs Temp Pulse Resp BP BP Pulse Ox 07/04/17 11:58 86 16 07/04/17 08:52 91 122/67 07/04/17 08:41 94 L 07/04/17 08:40 91 16 07/04/17 08:00 97.7 F 91 18 96 07/04/17 07:57 102 H 20 07/04/17 07:12 97.7 F 87 18 122/67 96 07/04/17 04:00 98.5 F 87 20 103/58 L 99 Admit Weight 209 lb 0.2 oz Weight 223 lb 07/03/17 07/04/17 07/05/17 06:59 06:59 06:59 Intake Total 2378 2278 Output Total 1025 3870 Balance 1353 -1592 - Physical Examination General/Neuro: alert & oriented x3, NAD Neck: no JVD present Lungs: unlabored respirations Heart: RRR Abdomen: NT/ND Extremities: + edema B (Trace) - Telemetry Telemetry Rhythm: NSR - Labs Result Diagrams: 07/04/17 05:23 07/04/17 05:23 Troponin/CKMB CK-MB (CK-2) 5.7 ng/mL (0-6.6) 06/27/17 10:42 Troponin I 0.190 ng/mL (< 0.028) H 06/27/17 17:44 - Assessment/Plan 1. Acute systolic heart failure. 2. Pericardial tamponade s/p pericardial window. 3. Possible apical thrombus. 4. New onset CM EF at 30-35% 5. Influenza B 6. Pneumonia PLAN: - Pericardial drain followed by CT surgery. - Replace K - JOSE ARMANDO planned for next week to better evaluate possible LV thrombus, continue full anticoagulation for now. - Medical therapy for CM for now. Continue coreg and lisinopril at current doses.
[2017-07-04] MEDS ORDERED: Furosemide 20 MG TAB PO SCH (12:30)
--- NOTE | 2017-07-04 13:32 | PRG ---
DATE OF SERVICE: 07/04/2017 SUBJECTIVE: Ms. Bledsoe is better, less short of breath. OBJECTIVE: VITAL SIGNS: Sats are 92% on room air, respirations 18, temperature 98. CHEST: No wheezing. CARDIAC: Normal S1-S2. ABDOMEN: Soft. No masses. LABORATORY: Creatinine 1.5. Electrolytes are normal. IMPRESSION: Status post pericardial window tamponade, congestive heart failure. PLAN: Continue Lovenox. Continue low dose prednisone. We will follow.
--- NOTE | 2017-07-04 15:10 | PDOC.PN ---
- Subjective Encounter Start Date: 07/04/17 Encounter Start Time: 14:00 Patient is seen today, Feels better after reducung the steroid dose. No other concern snoted. Waiting for JOSE ARMANDO on thursday. - Objective Resuscitation Status: Resuscitation Status FULL:Full Resuscitation MAR Reviewed: Yes Vital Signs & Weight: Vital Signs (12 hours) Temp Pulse Resp BP BP BP Pulse Ox 07/04/17 12:00 86 20 124/75 100 07/04/17 11:58 86 16 07/04/17 08:52 91 122/67 07/04/17 08:41 94 L 07/04/17 08:40 91 16 07/04/17 08:00 97.7 F 91 18 96 07/04/17 07:57 102 H 20 07/04/17 07:12 97.7 F 87 18 122/67 96 07/04/17 04:00 98.5 F 87 20 103/58 L 99 Weight Admit Weight 209 lb 0.2 oz Weight 223 lb Most Recent Monitor Data Heart Rate from ECG 106 NIBP 130/87 NIBP BP-Mean 99 Respiration from ECG 29 SpO2 99 I&O: 07/03/17 07/04/17 07/05/17 06:59 06:59 06:59 Intake Total 2378 2278 Output Total 1025 3870 Balance 1353 -1592 Result Diagrams: 07/04/17 05:23 07/05/17 04:54 Radiology Reviewed by me: Yes Phys Exam - Physical Examination Neck: no nodes, no JVD Respiratory: no wheezing, no rales Cardiovascular: RRR, no significant murmur Gastrointestinal: soft, non-tender Musculoskeletal: edema present Neurological: non-focal, normal sensation Psychiatric: normal affect, A&O x 3 Dx/Plan (1) Influenza Code(s): J11.1 - FLU DUE TO UNIDENTIFIED INFLUENZA VIRUS W OTH RESP MANIFEST Status: Acute Comment: Pt completed Tamiflu and IV antibiotics, will d/c Contact precautions. Pt on Steroids,on 5mg po daily, Stbale, No fever. (2) Pericardial effusion with cardiac tamponade Code(s): I31.3 - PERICARDIAL EFFUSION (NONINFLAMMATORY); I31.4 - CARDIAC TAMPONADE Status: Acute Comment: s/p pericardial window, stbale now, No SOB. Low EF, plan to Repeat Echo today. (3) MARCO ANTONIO (acute kidney injury) Code(s): N17.9 - ACUTE KIDNEY FAILURE, UNSPECIFIED Status: Acute Comment: stable and improved, continue hydration. (4) Hypertensive urgency Code(s): I16.0 - HYPERTENSIVE URGENCY Status: Acute Comment: Resolved now, Stbale, BP at Goal (5) Hypokalemia Code(s): E87.6 - HYPOKALEMIA Status: Acute Comment: Mild, KCL 40meq x 1 today, repeat K+ level in am (6) Hyperlipidemia Code(s): E78.5 - HYPERLIPIDEMIA, UNSPECIFIED Status: Chronic (7) Congestive heart failure (CHF) Code(s): I50.9 - HEART FAILURE, UNSPECIFIED Status: Acute Qualifiers: Congestive heart failure type: combined Congestive heart failure chronicity : acute Qualified Code(s): I50.41 - Acute combined systolic (congestive) and diastolic (congestive) heart failure Comment: EF 35-40%, Repeat Echo today, to look for improveemnt. (8) Scleroderma Code(s): M34.9 - SYSTEMIC SCLEROSIS, UNSPECIFIED Status: Chronic Comment: Pt on oral steroids, no evidence of exacerbation. (9) Apical mural thrombus Code(s): I51.3 - INTRACARDIAC THROMBOSIS, NOT ELSEWHERE CLASSIFIED Status: Acute Comment: Plan for [facility] ARMANDO on thursday, pt on anticoagulatn - Plan cont current plan of care, plan discussed w/ family, PT/OT, respiratory therapy , incentive spirometry, DVT proph w/lovenox * . - Discharge Day Encounter end time: 14:30 Review of Systems - Review of Systems Constitutional: weakness Eyes: negative: Pain, Vision Change, Conjunctivae Inflammation, Eyelid Inflammation, Redness, Other ENT: negative: Ear Pain, Ear Discharge, Nose Pain, Nose Discharge, Nose Congestion, Mouth Pain, Mouth Swelling, Throat Pain, Throat Swelling, Other Respiratory: negative: Cough, Dry, Shortness of Breath, Hemoptysis, SOB with Excertion, Pleuritic Pain, Sputum, Wheezing Cardiovascular: negative: chest pain, palpitations, orthopnea, paroxysmal nocturnal dyspnea, edema, light headedness, other Gastrointestinal: negative: Nausea, Vomiting, Abdominal Pain, Diarrhea, Constipation, Melena, Hematochezia, Other Musculoskeletal: negative: Neck Pain, Shoulder Pain, Arm Pain, Back Pain, Hand Pain, Leg Pain, Foot Pain, Other - Medications/Allergies Allergies/Adverse Reactions: Allergies Allergy/AdvReac Type Severity Reaction Status Date / Time No Known Allergies Allergy Verified 12/30/16 16:52 Medications: Current Medications Acetaminophen (Tylenol) 650 mg PO Q4H PRN PRN Reason: Headache/Fever or Pain Last Admin: 07/04/17 20:29 Dose: 650 mg Albuterol Sulfate (Proventil Hfa) 1 puff INH Q4HR PRN PRN Reason: SOB &/or Wheezing Albuterol/Ipratropium (Duoneb) 3 ml NEB [id number] [facility] Last Admin: 07/05/17 09:43 Dose: 3 ml Aspirin (Ecotrin) 81 mg PO DAILY [facility] Last Admin: 07/05/17 09:18 Dose: 81 mg Carvedilol (Coreg) 12.5 mg PO TID [facility] Last Admin: 07/05/17 09:19 Dose: 12.5 mg Cefdinir (Omnicef) 300 mg PO BID [facility] Stop: 07/06/17 09:01 Last Admin: 07/05/17 09:20 Dose: 300 mg Enoxaparin Sodium (Lovenox) 95 mg SC 0900,2100 [facility] Last Admin: 07/05/17 09:20 Dose: 95 mg Famotidine (Pepcid) 20 mg PO QPM [facility] Last Admin: 07/04/17 20:31 Dose: 20 mg Guaifenesin/Dextromethorphan (Robitussin Dm) 15 ml PO Q4H PRN PRN Reason: Cough Hydralazine HCl (Apresoline) 10 mg SLOW IVP Q4H PRN PRN Reason: Hypertension Lisinopril (Zestril) 5 mg PO DAILY [facility] Last Admin: 07/05/17 09:20 Dose: 5 mg Mometasone Furoate/Formoterol Fumar (Dulera 200 Mcg/5 Mcg Inhaler) 2 puff INH BID-RT [facility] Last Admin: 07/05/17 09:51 Dose: 2 puff Ondansetron HCl (Zofran) 4 mg IVP Q6H PRN PRN Reason: Nausea/Vomiting Last Admin: 07/01/17 15:06 Dose: 4 mg Prednisone (Prednisone) 5 mg PO DAILY [facility] Last Admin: 07/05/17 09:22 Dose: 5 mg Sodium Chloride (Flush - Normal Saline) 10 ml IVF PRN PRN PRN Reason: Saline Flush Last Admin: 07/03/17 09:27 Dose: 10 ml
--- NOTE | 2017-07-04 16:52 | PRG ---
DATE OF SERVICE: 07/04/2017 SUBJECTIVE: Patient was seen and examined at bedside and overnight events noted. Patient denies any shortness of breath or chest pain or palpitation. No history of nausea or vomiting or diarrhea or f ever or chills or cramps. OBJECTIVE: GENERAL: This is a well-built female, in no acute distress. VITAL SIGNS: Temperature 97.7, pulse 86, respiratory rate 20, blood pressure 124/74. HEENT: Atraumatic, normocephalic, oral mucosa is moist. NECK: Supple. CARDIOVASCULAR: S1, S2 heard, rate and rhythm regular. RESPIRATORY: Clear to auscultation. GASTROINTESTINAL: Abdomen is soft. MUSCULOSKELETAL: 1+ edema. DERMATOLOGIC: No skin rash. NEUROLOGIC: Alert and awake and oriented x3, no focal neurologic deficits. Moving all the extremiti es. PSYCHIATRIC: Mood and affect normal. LABORATORY DATA: Potassium is 3.2, BUN is 44, and creatinine is 4.4. ASSESSMENT AND PLAN: 1. Acute kidney injury on chronic kidney disease stage 3. Renal function is stable. 2. Hypertension, stable. 3. Hypokalemia, replaced. 4. Proteinuria. 5. Scleroderma. Overall, renal function is stable. Avoid nephrotoxins. We will monitor. Blood pressure seems to be stable. Replace potassium. We will follow.
[2017-07-04] MEDS: Famotidine 20 MG TAB PO SCH (20:31)
[2017-07-05 05:19] LABS: Anion Gap 11 mmol/L (10-20); BUN (Urea Nitrogen) 33 mg/dL (9.8-20.1); Calc. Creatinine Clearance 76 mL/min (70-130); Calcium 8.4 mg/dL (7.8-10.44); Carbon Dioxide 22 mmol/L (22-29); Chloride 106 mmol/L (98-107); Estimated GFR-MDRD 40; Glucose 93 mg/dL (70-105); Potassium 3.3 mmol/L (3.5-5.1); Sodium 136 mmol/L (136-145)
[2017-07-05] MEDS: Aspirin 81 mg Enteric Coated Tablet PO SCH (09:18)
[2017-07-05] MEDS: Carvedilol 6.25 MG TAB PO SCH ×3 (09:19→20:24)
[2017-07-05] MEDS: Lisinopril 5 MG TAB PO SCH (09:20)
[2017-07-05] MEDS: Enoxaparin Sodium 100 MG/ML SYRINGE SC SCH ×2 (09:20→20:24)
[2017-07-05] MEDS: Cefdinir 300 MG CAP PO SCH ×2 (09:20→20:24)
[2017-07-05] MEDS: predniSONE 5 MG/5 ML UDCUP PO SCH (09:22)
[2017-07-05] MEDS: Mometasone/Formoterol 120 PUFF INHALER INH SCH ×2 (09:51→19:53)
--- NOTE | 2017-07-05 12:31 | PDOC.PN ---
- Subjective Encounter Start Date: 07/05/17 Encounter Start Time: 10:30 Patient is seen today, alert and oriented. No other Concenr snoted,. She is able to walk without oxygen, her energy is much better. - Objective Resuscitation Status: Resuscitation Status FULL:Full Resuscitation MAR Reviewed: Yes Vital Signs & Weight: Vital Signs (12 hours) Temp Pulse Resp BP BP BP Pulse Ox 07/05/17 11:59 98.3 F 81 24 H 121/73 100 07/05/17 09:51 76 16 07/05/17 09:43 76 12 07/05/17 09:20 82 07/05/17 09:19 113/65 07/05/17 09:00 98.5 F 82 24 H 113/65 100 07/05/17 03:30 98.6 F 82 20 125/67 100 07/05/17 02:27 100 Weight Admit Weight 209 lb 0.2 oz Weight 218 lb 6.4 oz Most Recent Monitor Data Heart Rate from ECG 106 NIBP 130/87 NIBP BP-Mean 99 Respiration from ECG 29 SpO2 99 I&O: 07/04/17 07/05/17 07/06/17 06:59 06:59 06:59 Intake Total 2278 1518 Output Total 3870 2365 Balance -9333 -148 Result Diagrams: 07/04/17 05:23 07/05/17 04:54 Phys Exam - Physical Examination HEENT: PERRLA Neck: no nodes, no JVD Respiratory: no wheezing, no rales Cardiovascular: RRR, no significant murmur Gastrointestinal: soft, non-tender Musculoskeletal: pulses present, edema present Neurological: non-focal, normal sensation Psychiatric: normal affect, A&O x 3 Dx/Plan (1) Influenza Code(s): J11.1 - FLU DUE TO UNIDENTIFIED INFLUENZA VIRUS W OTH RESP MANIFEST Status: Acute Comment: Pt completed Tamiflu and IV antibiotics, will d/c Contact precautions. Pt on Steroids,on 5mg po daily, Stbale, No fever. (2) Pericardial effusion with cardiac tamponade Code(s): I31.3 - PERICARDIAL EFFUSION (NONINFLAMMATORY); I31.4 - CARDIAC TAMPONADE Status: Acute Comment: s/p pericardial window, stbale now, No SOB. Low EF, plan to Repeat Echo today. (3) MARCO ANTONIO (acute kidney injury) Code(s): N17.9 - ACUTE KIDNEY FAILURE, UNSPECIFIED Status: Acute Comment: stable and improved, continue hydration. (4) Hypertensive urgency Code(s): I16.0 - HYPERTENSIVE URGENCY Status: Acute Comment: Resolved now, Stbale, BP at Goal (5) Hypokalemia Code(s): E87.6 - HYPOKALEMIA Status: Acute Comment: Mild, KCL 40meq x 1 today, repeat K+ level in am (6) Hyperlipidemia Code(s): E78.5 - HYPERLIPIDEMIA, UNSPECIFIED Status: Chronic (7) Congestive heart failure (CHF) Code(s): I50.9 - HEART FAILURE, UNSPECIFIED Status: Acute Qualifiers: Congestive heart failure type: combined Congestive heart failure chronicity : acute Qualified Code(s): I50.41 - Acute combined systolic (congestive) and diastolic (congestive) heart failure Comment: EF 35-40%, Repeat Echo today, to look for improveemnt. (8) Scleroderma Code(s): M34.9 - SYSTEMIC SCLEROSIS, UNSPECIFIED Status: Chronic Comment: Pt on oral steroids, no evidence of exacerbation. (9) Apical mural thrombus Code(s): I51.3 - INTRACARDIAC THROMBOSIS, NOT ELSEWHERE CLASSIFIED Status: Acute Comment: Plan for [facility] ARMANDO on thursday, pt on anticoagulatn - Plan cont current plan of care, plan discussed w/ family, respiratory therapy, incentive spirometry, DVT proph w/lovenox * . - Discharge Day Encounter end time: 11:00 Review of Systems - Review of Systems Constitutional: weakness, malaise Eyes: negative: Pain, Vision Change, Conjunctivae Inflammation, Eyelid Inflammation, Redness, Other ENT: negative: Ear Pain, Ear Discharge, Nose Pain, Nose Discharge, Nose Congestion, Mouth Pain, Mouth Swelling, Throat Pain, Throat Swelling, Other Respiratory: negative: Cough, Dry, Shortness of Breath, Hemoptysis, SOB with Excertion, Pleuritic Pain, Sputum, Wheezing Cardiovascular: negative: chest pain, palpitations, orthopnea, paroxysmal nocturnal dyspnea, edema, light headedness, other Gastrointestinal: negative: Nausea, Vomiting, Abdominal Pain, Diarrhea, Constipation, Melena, Hematochezia, Other Genitourinary: negative: Dysuria, Frequency, Incontinence, Hematuria, Retention , Other Musculoskeletal: negative: Neck Pain, Shoulder Pain, Arm Pain, Back Pain, Hand Pain, Leg Pain, Foot Pain, Other - Medications/Allergies Allergies/Adverse Reactions: Allergies Allergy/AdvReac Type Severity Reaction Status Date / Time No Known Allergies Allergy Verified 12/30/16 16:52 Medications: Current Medications Acetaminophen (Tylenol) 650 mg PO Q4H PRN PRN Reason: Headache/Fever or Pain Last Admin: 07/04/17 20:29 Dose: 650 mg Albuterol Sulfate (Proventil Hfa) 1 puff INH Q4HR PRN PRN Reason: SOB &/or Wheezing Albuterol/Ipratropium (Duoneb) 3 ml NEB [id number] [facility] Last Admin: 07/05/17 09:43 Dose: 3 ml Aspirin (Ecotrin) 81 mg PO DAILY [facility] Last Admin: 07/05/17 09:18 Dose: 81 mg Carvedilol (Coreg) 12.5 mg PO TID [facility] Last Admin: 07/05/17 09:19 Dose: 12.5 mg Cefdinir (Omnicef) 300 mg PO BID [facility] Stop: 07/06/17 09:01 Last Admin: 07/05/17 09:20 Dose: 300 mg Enoxaparin Sodium (Lovenox) 95 mg SC 0900,2100 [facility] Last Admin: 07/05/17 09:20 Dose: 95 mg Famotidine (Pepcid) 20 mg PO QPM [facility] Last Admin: 07/04/17 20:31 Dose: 20 mg Guaifenesin/Dextromethorphan (Robitussin Dm) 15 ml PO Q4H PRN PRN Reason: Cough Hydralazine HCl (Apresoline) 10 mg SLOW IVP Q4H PRN PRN Reason: Hypertension Lisinopril (Zestril) 5 mg PO DAILY [facility] Last Admin: 07/05/17 09:20 Dose: 5 mg Mometasone Furoate/Formoterol Fumar (Dulera 200 Mcg/5 Mcg Inhaler) 2 puff INH BID-RT [facility] Last Admin: 07/05/17 09:51 Dose: 2 puff Ondansetron HCl (Zofran) 4 mg IVP Q6H PRN PRN Reason: Nausea/Vomiting Last Admin: 07/01/17 15:06 Dose: 4 mg Prednisone (Prednisone) 5 mg PO DAILY [facility] Last Admin: 07/05/17 09:22 Dose: 5 mg Sodium Chloride (Flush - Normal Saline) 10 ml IVF PRN PRN PRN Reason: Saline Flush Last Admin: 07/03/17 09:27 Dose: 10 ml
--- NOTE | 2017-07-05 14:35 | PDOC.CTH ---
Cardiology Progress Note - Objective Vital Signs Temp Pulse Resp BP BP BP Pulse Ox 07/05/17 11:59 98.3 F 81 24 H 121/73 100 07/05/17 09:51 76 16 07/05/17 09:43 76 12 07/05/17 09:20 82 07/05/17 09:19 113/65 07/05/17 09:00 98.5 F 82 24 H 113/65 100 07/05/17 03:30 98.6 F 82 20 125/67 100 Admit Weight 209 lb 0.2 oz Weight 218 lb 6.4 oz 07/04/17 07/05/17 07/06/17 06:59 06:59 06:59 Intake Total 2278 1518 Output Total 3004 7513 Balance -2156 -311 - Labs Result Diagrams: 07/04/17 05:23 07/05/17 04:54 Troponin/CKMB CK-MB (CK-2) 5.7 ng/mL (0-6.6) 06/27/17 10:42 Troponin I 0.190 ng/mL (< 0.028) H 06/27/17 17:44 - Assessment/Plan 1. Acute systolic heart failure. 2. Pericardial tamponade s/p pericardial window. 3. Possible apical thrombus. 4. New onset CM EF at 30-35% 5. Influenza B 6. Pneumonia PLAN: - Pericardial drain taken out today and she is doing well. - Replace K - Continue full anticoagulation for now. - Medical therapy for CM for now. Continue coreg and lisinopril at current doses. - [facility] ARMANDO tomorrow per Dr. Schwarz.
--- NOTE | 2017-07-05 14:57 | PRG ---
DATE OF SERVICE: 07/05/2017 SUBJECTIVE: She is better. OBJECTIVE: VITAL SIGNS: Sats are 100% on room air, respirations 16, temperature 98, blood pressure 130/65. CHEST: Decreased breath sounds, no wheezing. CARDIAC: Normal S1-S2. No gallops. ABDOMEN: Soft, no masses. LABORATORY DATA: Creatinine 1.38. IMPRESSION: 1. Azotemia, better. 2. Scleroderma. 3. Pericardial tamponade. 4. Respiratory failure. PLAN: She is scheduled for [facility] ARMANDO tomorrow. Probably discontinue prednisone post [facility]O. DISPOSITION: As per Cardiology.
[2017-07-05] MEDS ORDERED: Potassium Chloride 20 MEQ TAB PO SCH (15:00)
--- NOTE | 2017-07-05 17:17 | PRG ---
DATE OF SERVICE: 07/05/2017 SUBJECTIVE: Patient was seen and examined at bedside and overnight events noted. Patient denies any shortness of breath or chest pain or palpitation. No history of nausea or vomiting or diarrhea or fever or chill s or cramps. OBJECTIVE: GENERAL: This is a well-built female, in no apparent distress. VITAL SIGNS: Temperature 98.3, pulse rate 80, respiratory rate 18, blood pressure 129/71. HEENT: Atraumatic, normocephalic. Oral mucosa is moist. NECK: Supple. CARDIOVASCULAR: S1, S2 heard. Rate and rhythm regular. RESPIRATORY: Clear to auscultation. GASTROINTESTINAL: Abdomen is soft. MUSCULOSKELETAL: No tenderness. No edema. DERMATOLOGIC: No skin rash. NEUROLOGIC: Alert and awake and oriented x3. No focal neurologic deficits. Moving all the extremit ies. Psychiatric: Mood and affect normal. LABORATORY DATA: Creatinine is 1.38, GFR of 40, potassium is 3.3. ASSESSMENT AND PLAN: 1. Acute kidney injury on chronic kidney disease. Renal function is stable, close to her baseline. 2. Hypertension. 3. Hypokalemia. 4. Proteinuria. 5. Scleroderma. 6. Pericardial effusion. Overall, renal function is better. We will sign off. Replace potassium. Plan discussed with the chip zaman. Follow up in the clinic in 2 weeks.
[2017-07-05] MEDS: Famotidine 20 MG TAB PO SCH (20:24)
[2017-07-05] MEDS: Acetaminophen 325 MG TAB PO PRN (20:25)
[2017-07-06] MEDS: Acetaminophen 325 MG TAB PO PRN (03:00)
[2017-07-06 05:12] LABS: Hemoglobin 11.4 g/dL (12.0-16.0); Platelet Count 347 thou/uL (130-400)
[2017-07-06 05:36] LABS: Anion Gap 10 mmol/L (10-20); BUN (Urea Nitrogen) 29 mg/dL (9.8-20.1); Calc. Creatinine Clearance 77 mL/min (70-130); Calcium 8.5 mg/dL (7.8-10.44); Carbon Dioxide 24 mmol/L (22-29); Chloride 107 mmol/L (98-107); Estimated GFR-MDRD 42; Glucose 92 mg/dL (70-105); Potassium 3.7 mmol/L (3.5-5.1); Sodium 137 mmol/L (136-145)
[2017-07-06] MEDS ORDERED: PHENYLEPHRINE-NS 100 MCG/ML 10 ML SYRINGE ONE (07:45)
[2017-07-06] MEDS: Mometasone/Formoterol 120 PUFF INHALER INH SCH (07:58)
[2017-07-06] MEDS ORDERED: Diprivan 20 ML ONE (08:17)
[2017-07-06] MEDS ORDERED: Benzocaine 20% Spray 60 ML CAN ONE (08:18)
--- NOTE | 2017-07-06 10:08 | PRG ---
DATE OF SERVICE: 07/06/2017 SUBJECTIVE: Ms. Casie Bledsoe feels better. She is going for [facility] ARMANDO. OBJECTIVE: VITAL SIGNS: Blood pressure 130/72, saturation are 100% on room air, respiration 18, temperature 98. CHEST: Decreased breath sounds, no wheezing. CARDIAC: Normal S1, S2. No gallops. ABDOMEN: Soft. No masses. IMPRESSION: Respiratory failure, pericardial effusion, mild azotemia. PLAN: Continue cardiac care. I am going to discontinue the prednisone that has started during her stay in the ICU. DISPOSITION: As per Cardiology.
--- NOTE | 2017-07-06 10:10 | PDOC.PN ---
- Subjective Encounter Start Date: 07/06/17 Encounter Start Time: 10:10 Subjective: nsg notes rev, nisa ovn, pt no new c/o, @ bedside. pt wants to know -: if she can go home - Objective Resuscitation Status: Resuscitation Status FULL:Full Resuscitation Vital Signs & Weight: Vital Signs (12 hours) Temp Pulse Resp BP BP Pulse Ox 07/06/17 03:34 98.3 F 81 18 130/72 130/72 96 07/06/17 00:00 20 Weight Admit Weight 209 lb 0.2 oz Weight 220 lb 12.8 oz Most Recent Monitor Data Heart Rate from ECG 106 NIBP 130/87 NIBP BP-Mean 99 Respiration from ECG 29 SpO2 99 I&O: 07/05/17 07/06/17 07/07/17 06:59 06:59 06:59 Intake Total 1518 1020 Output Total 2365 1050 Balance -847 -30 Result Diagrams: 07/06/17 04:50 07/06/17 04:50 Phys Exam - Physical Examination Constitutional: NAD HEENT: PERRLA, moist MMs, sclera anicteric Neck: no nodes, no JVD Respiratory: no wheezing, no rales, no rhonchi, clear to auscultation bilateral Cardiovascular: RRR, no significant murmur, no rub surgical site dressing not removed but c/d/i Gastrointestinal: soft, non-tender, no distention, positive bowel sounds Musculoskeletal: pulses present Neurological: moves all 4 limbs Psychiatric: normal affect, A&O x 3 Dx/Plan (1) Influenza Code(s): J11.1 - FLU DUE TO UNIDENTIFIED INFLUENZA VIRUS W OTH RESP MANIFEST Status: Acute Comment: Pt completed Tamiflu and IV antibiotics, will d/c Contact precautions. Pt on Steroids,on 5mg po daily, Stbale, No fever. (2) MARCO ANTONIO (acute kidney injury) Code(s): N17.9 - ACUTE KIDNEY FAILURE, UNSPECIFIED Status: Acute Comment: stable and improved, continue hydration. (3) Hypertensive urgency Code(s): I16.0 - HYPERTENSIVE URGENCY Status: Acute Comment: Resolved now, Stbale, BP at Goal - Plan * influenza B * currently day 9 of tamiflu, will complete 10d course 2/2 complicated and severe disease then d/c pericardial effusion * in the setting of known scleroderma * s/p pericardial window with drain (which has also been removed) * apprec CV surg c/s * hemodynamically stable question of apical thrombus, ruled out * d/c full dose lovenox a/c * apprec cardiology c/s acute hypoxic resp failure likely 2/2 to influenza + pericardial effusion, resolved * apprec pulmonary c/s * off prednisone today MARCO ANTONIO on CKD * in the setting of sclerodermal disease * reasonable UOP, continue to monitor * apprec nephrology c/s diet: as ryan activity: as ryan t/c d/c later today Review of Systems - Medications/Allergies Allergies/Adverse Reactions: Allergies Allergy/AdvReac Type Severity Reaction Status Date / Time No Known Allergies Allergy Verified 12/30/16 16:52 Medications: Current Medications Acetaminophen (Tylenol) 650 mg PO Q4H PRN PRN Reason: Headache/Fever or Pain Last Admin: 07/06/17 03:00 Dose: 650 mg Albuterol Sulfate (Proventil Hfa) 1 puff INH Q4HR PRN PRN Reason: SOB &/or Wheezing Albuterol/Ipratropium (Duoneb) 3 ml NEB [id number] [facility] Last Admin: 07/06/17 10:50 Dose: 3 ml Aspirin (Ecotrin) 81 mg PO DAILY [facility] Last Admin: 07/06/17 10:31 Dose: 81 mg Carvedilol (Coreg) 12.5 mg PO TID [facility] Last Admin: 07/06/17 10:31 Dose: 12.5 mg Famotidine (Pepcid) 20 mg PO QPM [facility] Last Admin: 07/05/17 20:24 Dose: 20 mg Guaifenesin/Dextromethorphan (Robitussin Dm) 15 ml PO Q4H PRN PRN Reason: Cough Hydralazine HCl (Apresoline) 10 mg SLOW IVP Q4H PRN PRN Reason: Hypertension Lisinopril (Zestril) 5 mg PO DAILY [facility] Last Admin: 07/06/17 10:26 Dose: 5 mg Mometasone Furoate/Formoterol Fumar (Dulera 200 Mcg/5 Mcg Inhaler) 2 puff INH BID-RT [facility] Last Admin: 07/06/17 07:58 Dose: Not Given Ondansetron HCl (Zofran) 4 mg IVP Q6H PRN PRN Reason: Nausea/Vomiting Last Admin: 07/01/17 15:06 Dose: 4 mg Sodium Chloride (Flush - Normal Saline) 10 ml IVF PRN PRN PRN Reason: Saline Flush Last Admin: 07/03/17 09:27 Dose: 10 ml
[2017-07-06] MEDS: Lisinopril 5 MG TAB PO SCH (10:26)
[2017-07-06] MEDS: Cefdinir 300 MG CAP PO SCH (10:27)
[2017-07-06] MEDS: Carvedilol 6.25 MG TAB PO SCH ×2 (10:31→15:27)
[2017-07-06] MEDS: Aspirin 81 mg Enteric Coated Tablet PO SCH (10:31)
[2017-07-06] MEDS ORDERED: Propofol 200 MG/20 ML VIAL ONE (12:05)
[2017-07-06 12:56] VITALS: TEMP 98.4
[2017-07-06] MEDS: Enoxaparin Sodium 100 MG/ML SYRINGE SC SCH (12:58)
[2017-07-06] MEDS: predniSONE 5 MG/5 ML UDCUP PO SCH (12:58)
--- NOTE | 2017-07-06 15:19 | OP ---
DATE OF PROCEDURE: 07/06/2017 PREPROCEDURE DIAGNOSIS: Thrombus noted at the apex. POST-PROCEDURE DIAGNOSIS: No thrombus present. PROCEDURE PERFORMED: Transesophageal echocardiography. The patient was consented for the procedure on Thursday prior to the procedure. Conscious sedation was provided by Anesthesia. FINDINGS: LVEF estimated at 40%-45%. Apical thrombus well visualized. [place] of the left ventricle w as well visualized. No apical thrombus is present. IMPRESSION: 1. No apical thrombus. 2. Left ventricular ejection fraction 40%-45%.
[2017-07-06 15:30] VITALS: BP 113/57
== END 2017-07-06 19:57 | disposition home or self-care (01) | DRG 163 ==
LOC: ERS 10:05 → ERHOLD 12:12 → 2NO 17:05 → CCU 06-28 22:54 → 2NO 07-02 21:36
PROVIDERS: ADMIT Internal Medicine; ATTEND Internal Medicine
PROC: 06HM33Z Insertion of Infusion Device into Right Femoral Vein, Percutaneous Approach (ICD-10-PCS; 2017-06-28)
PROC: 0W9D00Z Drainage of Pericardial Cavity with Drainage Device, Open Approach (ICD-10-PCS; principal; 2017-06-29)
PROC: 02H633Z Insertion of Infusion Device into Right Atrium, Percutaneous Approach (ICD-10-PCS; 2017-06-29)
PROC: B245ZZ4 Ultrasonography of Left Heart, Transesophageal (ICD-10-PCS; 2017-07-06)
DX: J10.00 Influenza due to other identified influenza virus with unspecified type of pneumonia (principal); I21.A1 Myocardial infarction type 2; J96.01 Acute respiratory failure with hypoxia; I31.4 Cardiac tamponade; I50.21 Acute systolic (congestive) heart failure; I95.9 Hypotension, unspecified; N17.9 Acute kidney failure, unspecified; E87.1 Hypo-osmolality and hyponatremia; N18.3 Chronic kidney disease, stage 3 (moderate); E87.2 Acidosis; I31.3 Pericardial effusion (noninflammatory); I42.9 Cardiomyopathy, unspecified; M34.9 Systemic sclerosis, unspecified; E86.0 Dehydration; I73.00 Raynaud's syndrome without gangrene; E87.6 Hypokalemia; R80.9 Proteinuria, unspecified; I12.9 Hypertensive chronic kidney disease with stage 1 through stage 4 chronic kidney disease, or unspecified chronic kidney disease; R00.0 Tachycardia, unspecified; D64.9 Anemia, unspecified; F41.9 Anxiety disorder, unspecified; E66.9 Obesity, unspecified; Z68.34 Body mass index [BMI] 34.0-34.9, adult; I16.0 Hypertensive urgency; E78.5 Hyperlipidemia, unspecified; R00.1 Bradycardia, unspecified
CPT/HCPCS: 36415; 36416; 71045; 80048; 80053; 80069; 81001; 82553; 82805; 83605; 83880; 84443; 84484; 85014; 85018; 85025; 85049; 87040; 87324; 87449; 88112; 88305; 93005; 93010; 93306; 93312; 94002; 94003; 94640; 94660; 96361; 96374; 96376; A4216; G8978-GP-CL; G8979-GP-CK; J0696; J1265; J1650; J1940; J1956; J2001; J2250; J2405; J2704; J2920; J3010; J7050; J7620; P9045; S0020; S0028

== ENCOUNTER 2018-04-13 12:42 | Outpatient (CLI) | payer OTHER | END 2018-04-13 12:43 | disposition home or self-care (01) | LOC: BICMAMMO 12:42 | PROVIDERS: ATTEND Obstetrics & Gynecology | DX: Z12.31 Encounter for screening mammogram for malignant neoplasm of breast (principal); Z80.3 Family history of malignant neoplasm of breast | CPT/HCPCS: 77063; 77067 ==

== ENCOUNTER 2018-05-10 13:40 | Outpatient (CLI) | payer OTHER ==
--- NOTE | 2018-05-10 15:46 | RAD ---
CHEST PA AND LATERAL History: 52-year-old female with history of dyspnea. Comparison: 07-30-17 FINDINGS: Heart size is within normal limits. Minimal biapical pleural thickening. No confluent pneumonia, over t edema, or pleural effusion. IMPRESSION: Mild stable chronic lung changes. No acute intrathoracic disease. POS: [facility]
== END 2018-05-10 13:41 | disposition home or self-care (01) ==
LOC: RAD 13:40
PROVIDERS: ATTEND Internal Medicine Pulmonary Disease
DX: R06.00 Dyspnea, unspecified (principal)
CPT/HCPCS: 71046

== ENCOUNTER 2018-05-26 12:36 | Outpatient (CLI) | payer OTHER | END 2018-05-26 12:37 | disposition home or self-care (01) | LOC: CP 12:36 | PROVIDERS: ATTEND Internal Medicine Pulmonary Disease | DX: R06.02 Shortness of breath (principal) | CPT/HCPCS: 94060; 94727; 94729 ==

== ENCOUNTER 2018-06-30 20:30 | Outpatient (CLI) | payer OTHER | END 2018-06-30 20:31 | disposition home or self-care (01) | LOC: SLEEPLAB 20:30 | PROVIDERS: ATTEND Internal Medicine Pulmonary Disease | DX: G47.33 Obstructive sleep apnea (adult) (pediatric) (principal); R06.83 Snoring; G47.10 Hypersomnia, unspecified; I10 Essential (primary) hypertension; G47.00 Insomnia, unspecified; E66.9 Obesity, unspecified; Z68.35 Body mass index [BMI] 35.0-35.9, adult | CPT/HCPCS: 95811 ==

== ENCOUNTER 2020-08-20 10:51 | Outpatient (CLI) | payer OTHER | END 2020-08-20 10:52 | disposition home or self-care (01) | LOC: ULT 10:51 | PROVIDERS: ATTEND Obstetrics & Gynecology | DX: R59.0 Localized enlarged lymph nodes (principal) | CPT/HCPCS: 76999 ==

== ENCOUNTER 2020-08-28 09:47 | Outpatient (CLI) | payer OTHER | END 2020-08-28 09:48 | disposition home or self-care (01) | LOC: BICMAMMO 09:47 | PROVIDERS: ATTEND Obstetrics & Gynecology | DX: N63.20 Unspecified lump in the left breast, unspecified quadrant (principal) | CPT/HCPCS: G0279 ==

== ENCOUNTER 2021-09-26 11:28 | Outpatient (CLI) | payer MEDICARE | END 2021-09-26 11:29 | disposition home or self-care (01) | LOC: BICMAMMO 11:28 | PROVIDERS: ATTEND Family Medicine | DX: Z12.31 Encounter for screening mammogram for malignant neoplasm of breast (principal); Z80.3 Family history of malignant neoplasm of breast | CPT/HCPCS: 77063; 77067 ==